=== PATIENT | female | born 1985 | race Caucasian/White ===

== ENCOUNTER 2016-09-04 04:48 | Emergency (ER) | payer SELFPAY ==
[~2016-09-04] VITALS: Ht 162.6 cm; Wt 56.0 kg
[~2016-09-04 04:48] MED LIST: RISP2TAB3 PO; TAP5 PO
[2016-09-04] MEDS ORDERED: HALOPERIDOL 5 MG INJ IM STA (04:51)
[2016-09-04] MEDS ORDERED: LORAZEPAM 2 MG INJ IM ONE (05:00)
[2016-09-04 05:04] VITALS: Ht 162.6 cm; Wt 56.0 kg
[2016-09-04] MEDS ORDERED: DIVA250T60 PO (05:21)
[2016-09-04] MEDS ORDERED: LITH300T5 PO (05:21)
[2016-09-04] MEDS ORDERED: OLAN10VI3 IM (05:21)
--- NOTE | 2016-09-04 05:23 | ERA ---
ER Documentation Chief Complaint Date/Time DATE: 09/04/16 TIME: 05:21 Chief Complaint hyperactive, hyperverbal, unk drug use although denies use, -si/hi HPI This is a 31-year-old female brought in by ambulance for evaluation of abnormal behavior, and agitation. This patient is unable to give a detailed history secondary to her clinical condition. There is possible drug use. The patient is denying any homicidal or suicidal ideation at this time. ROS All systems reviewed and are negative except as per history of present illness. Medications Home Meds Reported Medications Olanzapine (Zyprexa) 10 Mg Soln, 10 MG IM ONCE, #1 VIAL 09/04/16 Divalproex Sodium* (Depakote*) 250 Mg Tablet.dr, 250 MG PO TID, TAB 09/04/16 [place] Carbonate* ([place] Carbonate*) 300 Mg Tablet, 300 MG PO TID, TAB 09/04/16 Methimazole* (Methimazole*) 5 Mg Tablet, 5 MG PO BID, TAB 06/26/16 Risperidone* (Risperidone*) 2 Mg Tablet, 2 MG PO DAILY, TAB 06/26/16 Allergies Allergies: Coded Allergies: No Known Allergy (Unverified , 06/26/16) PMhx/Soc History of Surgery: No Anesthesia Reaction: No Hx Neurological Disorder: No Hx Respiratory Disorders: No Hx Cardiac Disorders: No Hx Psychiatric Problems: Yes (drug abuse, ETOH abuse, schitzophrenia) Hx Miscellaneous Medical Probl: No Hx Alcohol Use: Yes (unable to determine type, last used today) Hx Substance Use: Yes (cocaine last used today) Hx Tobacco Use: Yes (unknown) Smoking Status: Current every day smoker Physical Exam Vitals Vital Signs Date Time Temp Pulse Resp B/P Pulse Ox O2 Delivery O2 Flow Rate FiO2 09/04/16 05:04 98.5 99 20 141/95 100 Physical Exam Const: Disheveled appearance, agitated, he Head: [Atraumatic] Eyes: [Normal Conjunctiva] ENT: [Normal External Ears, Nose and Mouth.] Neck: [Full range of motion. No meningismus.] Resp: [Clear to auscultation bilaterally] Cardio: [Regular rate and rhythm, no murmurs] Abd: [Soft, non tender, non distended. Normal bowel sounds] Skin: [No petechiae or rashes] Back: [No midline or flank tenderness] Ext: [No cyanosis, or edema] Neur: [Awake and alert] Psych: Patient is agitated, and yelling Results 24 hrs Current Medications Medications (Trade) Dose Ordered Sig/Yeny Route PRN Reason Start Time Stop Time Status Last Admin Dose Admin Haloperidol (Haldol) 5 mg ONCE STAT IM 09/04/16 04:51 09/04/16 04:53 DC 09/04/16 05:10 Lorazepam (Ativan) 2 mg ONCE ONCE IM 09/04/16 05:00 09/04/16 05:01 DC 09/04/16 05:10 Procedures/MDM This 31-year-old female presents to the emergency room for agitation. The patient was given Haldol, Ativan, and Benadryl due to the fact that she was screaming. I could not obtain a detailed history from her secondary to her clinical condition. This patient will be evaluated by psychiatric evaluation team will be placed on a hold if deemed necessary. Patient presents with symptomatology consistent with the decompensation of previously diagnosed psychiatric disease. Based on history, physical exam and appropriate lab tests , I appreciate no evidence of significant life-threatening injury or illness that includes a psychiatric hospitalization. Patient is thus "medically clear" for psychiatric admission. In regards to the psychiatric complaints, this patient has clear evidence of high risk psychiatric symptoms with significant risk for decompensation, thus requiring admission to the hospital for stabilization. Departure Diagnosis: Primary Impression: Acute psychosis Condition: Stable PATRICIA ROMO DO Sep 04, 2016 05:22
[2016-09-04 05:58] LABS: BASOPHIL # 0.1 10^3/ul (0.0-0.1); BASOPHILS % 0.4 % (0.0-2.0); EOSINOPHILS # 0.1 10^3/ul (0.0-0.5); EOSINOPHILS % 0.8 % (0.0-7.0); HEMATOCRIT 41.2 % (37.0-47.0); HEMOGLOBIN 14.1 g/dl (12.0-16.0); LYMPHOCYTES % 12.8 % (15.0-51.0); MEAN CORPUSCULAR HEMOGLOBIN 28.6 pg (29.0-33.0); MEAN CORPUSCULAR HGB CONC 34.3 g/dl (32.0-37.0); MEAN CORPUSCULAR VOLUME 83.4 fl (82.0-101.0); MEAN PLATELET VOLUME 8.6 fl (7.4-10.4); MONOCYTE # 0.6 10^3/ul (0.3-0.9); NEUTROPHIL # 12.5 10^3/ul (1.6-7.5); PLATELET COUNT 354 10^3/UL (140-440); RED BLOOD COUNT 4.94 10^6/ul (4.20-5.40); RED CELL DISTRIBUTION WIDTH 16.9 % (11.5-14.5); UNCORRECTED WBC 15.3 10^3/ul (4.8-10.8); WHITE BLOOD COUNT 15.3 10^3/ul (4.8-10.8)
[2016-09-04 06:03] LABS: ALBUMIN 4.7 g/dl (3.3-4.9); CHLORIDE 104 mmol/L (97-110)
[2016-09-04 06:04] LABS: POTASSIUM 4.3 mmol/L (3.5-5.1); SODIUM 142 mmol/L (135-144)
[2016-09-04 06:06] LABS: ANION GAP 16 (8-16); ASPARTATE AMINO TRANSFERASE 32 IU/L (15-46); BILIRUBIN,INDIRECT 0.6 mg/dl (0-1.1); BILIRUBIN,TOTAL 0.6 mg/dl (0.2-1.3); CARBON DIOXIDE 26 mmol/L (21-31); CREATININE 0.73 mg/dl (0.44-1.00)
[2016-09-04 06:07] LABS: ALANINE AMINOTRANSFERASE 28 IU/L (13-69); ALBUMIN/GLOBULIN RATIO 1.14; ALKALINE PHOSPHATASE 82 IU/L (42-121); BLOOD UREA NITROGEN 17 mg/dl (7-20); CONDITION 1; GLUCOSE 82 mg/dl (70-220); LH ANALYZER COMMENTS 1; TOTAL PROTEIN 8.8 g/dl (6.1-8.1)
[2016-09-04 06:09] LABS: ACETAMINOPHEN < 10.0 ug/ml (10.0-30.0); ETHANOL < 10.0 mg/dl; SALICYLATE < 1.0 mg/dl (5.0-30.0)
[2016-09-04 07:45] LABS: ADD UMIC NO; URINE BILIRUBIN (Dip) NEGATIVE (NEGATIVE); URINE BLOOD (Dip) NEGATIVE (NEGATIVE); URINE COLOR LT. YELLOW (YELLOW); URINE GLUCOSE (Dip) NEGATIVE (NEGATIVE); URINE KETONES (Dip) NEGATIVE (NEGATIVE); URINE LEUKOCYTE ESTERASE (Dip) NEGATIVE (NEGATIVE); URINE NITRITE (Dip) NEGATIVE (NEGATIVE); URINE TOTAL PROTEIN (Dip) NEGATIVE (NEGATIVE); URINE UROBILINOGEN (Dip) 0.2 E.U./dL (0.1-1.0)
[2016-09-04 08:07] LABS: BARBITURATES NEGATIVE (NEGATIVE); BENZODIAZEPINES NEGATIVE (NEGATIVE); CANNABINOIDS NEGATIVE (NEGATIVE); COCAINE NEGATIVE (NEGATIVE); OPIATES NEGATIVE (NEGATIVE)
--- NOTE | 2016-09-04 14:40 | PSY ---
Date/Time of Note Date/Time of Note DATE: 09/04/16 TIME: 14:25 Psychiatric Subjective Eval Consent Pt consented to telemedicine: Yes Subjective Evaluation Patient location: emergency Chief Complaint: hyperactive, hyperverbal, unk drug use although denies use, - si/hi History of present illness d/w Dr Burton earlier in AM (pt was sedated at the time). Pt is 31 yo female BIB police due to agitation, screaming. Pt was chemically restrained with Haldol and Ativan. She is awake and alert now. She is pleasant, smiling. Pt adamantly denies any si or hi, she denies ah or vh. She admits to feeling "sometimes" paranoid. She says she is here because she "argues a lot". Pt says , she can go to her mother's house. She denies depressed mood or anxiety. Past psychiatric history pt says she had 14 inpt psych for "arguing" - she has a long hx meth use disorder and non adherence to meds. Denies hx SI . 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 Psychiatric Objective Eval Physical Examination: Appetite: Adequate Energy: Adequate Interest: Adequate Mental Status Examination: Appearance: Disheveled Eye Contact: Good Psychomotor Activity: Normal Behavior: Cooperative Speech: Pressured AFFECT: Appropriate Mood: Elevated Though Process: Linear Thought Content: Normal Suicidal: No Homicidal: No On 72 hour hold: No Orientation: x4 Cognition: Alert Insight: Impared Judgement: Impared Laboratory Results Laboratory Tests Test 09/04/16 05:10 09/04/16 06:55 Acetaminophen Level < 10.0ug/ml Alanine Aminotransferase (ALT/SGPT) 28IU/L Albumin 4.7g/dl Albumin/Globulin Ratio 1.14 Alkaline Phosphatase 82IU/L Anion Gap 16 Aspartate Amino Transf (AST/SGOT) 32IU/L Basophils # 0.110^3/ul Basophils % 0.4% Blood Morphology Comment Blood Urea Nitrogen 17mg/dl Calcium Level 10.0mg/dl Carbon Dioxide Level 26mmol/L Chloride Level 104mmol/L Creatinine 0.73mg/dl Direct Bilirubin 0.00mg/dl Eosinophils # 0.110^3/ul Eosinophils % 0.8% Ethyl Alcohol Level < 10.0mg/dl Globulin 4.10g/dl Glucose Level 82mg/dl Hematocrit 41.2% Hemoglobin 14.1g/dl Indirect Bilirubin 0.6mg/dl Lymphocytes # 2.010^3/ul Lymphocytes % 12.8% Mean Corpuscular Hemoglobin 28.6pg Mean Corpuscular Hemoglobin Concent 34.3g/dl Mean Corpuscular Volume 83.4fl Mean Platelet Volume 8.6fl Monocytes # 0.610^3/ul Monocytes % 4.0% Neutrophils # 12.510^3/ul Neutrophils % 82.0% Nucleated Red Blood Cells # 0.010^3/ul Nucleated Red Blood Cells % 0.0/100WBC Platelet Count 76518^3/UL Potassium Level 4.3mmol/L Red Blood Count 4.9410^6/ul Red Cell Distribution Width 16.9% Salicylates Level < 1.0mg/dl Sodium Level 142mmol/L Total Bilirubin 0.6mg/dl Total Protein 8.8g/dl White Blood Count 15.310^3/ul Urine Amphetamines Screen POSITIVE Urine Barbiturates NEGATIVE Urine Benzodiazepines Screen NEGATIVE Urine Bilirubin NEGATIVE Urine Cannabinoids NEGATIVE Urine Clarity CLEAR Urine Cocaine Screen NEGATIVE Urine Color LT. YELLOW Urine Glucose NEGATIVE% Urine Hemoglobin NEGATIVE Urine Ketones NEGATIVE Urine Leukocyte Esterase NEGATIVE Urine Nitrite NEGATIVE Urine Opiates Screen NEGATIVE Urine Test NEGATIVE Urine Specific [place] 1.025 Urine Total Protein NEGATIVE Urine Urobilinogen 0.2 E.U./dL Urine pH 6.0 Assessment and Plan Assessment/Diagnosis Higbee I: AMPHETAMINE INDUCED PSYCHOSIS Higbee II: DEFERED Higbee III: PER RECORD Higbee IV: SEVERE Higbee V: GAF 40 Recommendation/Plan Medication Management SEROQUEL 200 MG PO QHS 30 DAYS SUPPLY Follow-up/Disposition NO DTS, DTO,GD. PLEASE REFER TO [facility]. [id number] Recommendation: Place LEO Ryan MD Sep 04, 2016 14:35
[2016-09-04] MEDS ORDERED: QUET200T PO (17:02)
--- NOTE | 2016-09-04 17:08 | EN ---
Date/Time of Note Date/Time of Note DATE: 09/04/16 TIME: 17:04 ER Progress Note This patient was evaluated by tele-psychiatry during my shift. Diagnosis with methamphetamine abuse psychosis. The patient no longer states that she has suicidal or homicidal ideations. She is feeling much better. I spoke with her at the bedside regarding methamphetamine use and its dangers. I am also providing her with written instructions. If her primary care follow-up in the next few days as well as psychiatric resources that she can call. Vital signs are stable. Psychiatry advised discharging with 200 mg Seroquel nightly. I will give her 15 tablets of this. Discharge diagnosis: Methamphetamine induced psychosis SORIN CORCORAN DO Sep 04, 2016 17:08
[2016-09-04 17:29] VITALS: BP 114/76; PULSE 79; RESP 16; TEMP 98.1
== END 2016-09-04 17:33 | disposition home or self-care (01) ==
LOC: E/R 04:48
DX: F29 Unspecified psychosis not due to a substance or known physiological condition (principal); F17.210 Nicotine dependence, cigarettes, uncomplicated
CPT/HCPCS: 80053; 80306; 80307; 81003; 84703; 85025; J1630; J2060; 36415; 96372

== ENCOUNTER 2016-11-05 13:23 | Emergency (ER) | payer SELFPAY ==
[~2016-11-05] VITALS: Ht 170.2 cm; Wt 60.0 kg
[~2016-11-05 13:23] MED LIST changes: +DIVA250T60 PO; +LITH300T5 PO; +OLAN10VI3 IM; +QUET200T PO
[2016-11-05] MEDS ORDERED: SOD CHLORIDE 0.9% 1,000 ML IV STA (13:28)
[2016-11-05 13:30] VITALS: Ht 170.2 cm; Wt 60.0 kg
[2016-11-05 13:45] LABS: ADD SCAN DIFF NO
[2016-11-05 13:48] LABS: ABNORMAL IP MESSAGE 1; HEMATOCRIT 48.9 % (37.0-47.0); HEMOGLOBIN 16.2 g/dl (12.0-16.0); MEAN CORPUSCULAR HEMOGLOBIN 28.3 pg (29.0-33.0); MEAN CORPUSCULAR HGB CONC 33.1 g/dl (32.0-37.0); MEAN CORPUSCULAR VOLUME 85.5 fl (82.0-101.0); MEAN PLATELET VOLUME 10.4 fl (7.4-10.4); PLATELET COUNT 456 10^3/UL (140-415); RED BLOOD COUNT 5.72 10^6/ul (4.20-5.40); RED CELL DISTRIBUTION WIDTH 15.8 % (11.5-14.5); WHITE BLOOD COUNT 29.9 10^3/ul (4.8-10.8)
[2016-11-05 13:57] LABS: ALBUMIN 5.1 g/dl (3.3-4.9); CHLORIDE 101 mmol/L (97-110)
[2016-11-05 13:58] LABS: POTASSIUM 3.6 mmol/L (3.5-5.1); SODIUM 141 mmol/L (135-144)
[2016-11-05 14:00] LABS: ALANINE AMINOTRANSFERASE 23 IU/L (13-69); ALBUMIN/GLOBULIN RATIO 1.08; ALKALINE PHOSPHATASE 88 IU/L (42-121); ANION GAP 26 (8-16); ASPARTATE AMINO TRANSFERASE 46 IU/L (15-46); BILIRUBIN,INDIRECT 0.7 mg/dl (0-1.1); BILIRUBIN,TOTAL 0.7 mg/dl (0.2-1.3); BLOOD UREA NITROGEN 16 mg/dl (7-20); CALCIUM 9.9 mg/dl (8.4-10.2); CARBON DIOXIDE 18 mmol/L (21-31); CREATININE 1.62 mg/dl (0.44-1.00); GLUCOSE 172 mg/dl (70-220); TOTAL PROTEIN 9.8 g/dl (6.1-8.1)
[2016-11-05 14:14] LABS: ACETAMINOPHEN < 10.0 ug/ml (10.0-30.0); ETHANOL < 10.0 mg/dl; SALICYLATE < 1.0 mg/dl (5.0-30.0)
[2016-11-05] MEDS ORDERED: LORAZEPAM 2 MG INJ ONE (14:18)
[2016-11-05 14:26] LABS: EOSINOPHILS # 0.3 10^3/ul (0.0-0.5); LYMPHOCYTES # 1.8 10^3/ul (0.8-2.9); MONOCYTE # 1.8 10^3/ul (0.3-0.9); NEUTROPHIL # 24.2 10^3/ul (1.6-7.5)
[2016-11-05] MEDS ORDERED: LORAZEPAM 2 MG INJ IV ONE (14:30)
--- NOTE | 2016-11-05 14:58 | ERD ---
ER Documentation Chief Complaint Date/Time DATE: 11/05/16 TIME: 14:55 Chief Complaint TOOK UNKNOWN PILLS FOR RECREATIONAL USE. IN ED FOR EVAL. HPI 31-year-old female presents to the emergency department by ambulance after apparent ingestion. Parent apparently tried take drugs of abuse. She was found with an altered mental status. Tax Collection Coordinator report was that the patient was hypotensive in the field I have reviewed the vocational trainer pre-hospital care. Pre-hospital vital signs were reviewed. Pre-hospital diagnostic tests were reviewed. Upon arrival, patient is asymptomatic. She denies suicidal or homicidal thoughts. ROS All systems reviewed and are negative except as per history of present illness. Medications Home Meds Active Scripts Quetiapine Fumarate* (Seroquel*) 200 Mg Tablet, 200 MG PO HS, #15 TAB Prov:SORIN CORCORAN DO 09/04/16 Reported Medications Olanzapine (Zyprexa) 10 Mg Soln, 10 MG IM ONCE, #1 VIAL 09/04/16 Divalproex Sodium* (Depakote*) 250 Mg Tablet.dr, 250 MG PO TID, TAB 09/04/16 [place] Carbonate* ([place] Carbonate*) 300 Mg Tablet, 300 MG PO TID, TAB 09/04/16 Methimazole* (Methimazole*) 5 Mg Tablet, 5 MG PO BID, TAB 06/26/16 Risperidone* (Risperidone*) 2 Mg Tablet, 2 MG PO DAILY, TAB 06/26/16 Allergies Allergies: Coded Allergies: No Known Allergy (Unverified , 06/26/16) PMhx/Soc History of Surgery: No Anesthesia Reaction: No Hx Neurological Disorder: No Hx Respiratory Disorders: No Hx Cardiac Disorders: No Hx Psychiatric Problems: Yes (drug abuse, ETOH abuse, schitzophrenia) Hx Miscellaneous Medical Probl: No Hx Alcohol Use: Yes (unable to determine type, last used today) Hx Substance Use: Yes (cocaine last used today) Hx Tobacco Use: Yes (unknown) Smoking Status: Never smoker FmHx Noncontributory for chief complaint Physical Exam Vitals Vital Signs Date Time Temp Pulse Resp B/P Pulse Ox O2 Delivery O2 Flow Rate FiO2 11/05/16 13:30 82 16 124/81 94 Physical Exam GENERAL: Patient is well-developed well-nourished but disheveled. HEENT: Pupils equal, round, and reactive to light. EOMI. There is no scleral icterus. Airway is clear NECK: C-spine is soft and supple, there is no meningismus. There is no cervical lymphadenopathy. LUNGS: Clear to auscultation bilaterally. There are no rales, wheezes or rhonchi. HEART: Regular rate and rhythm, no murmurs, clicks, rubs or gallops. ABDOMEN: Soft, non-tender, non-distended. There are bowel sounds in all four quadrants. No rebound or guarding. EXTREMITIES: There is no peripheral cyanosis or edema. No focal swelling or erythema. NEURO: Patient is somnolent but awake and arousable. She is protecting her airway. She has a nonfocal motor and sensory examination. SKIN: There is no apparent rash or petechiae. HEME/LYMPHATIC: There is no evidence of excessive bruising or lymphedema. PSYCHIATRIC: The patient does not appear anxious or depressed. Result Diagram: 11/05/16 1335 11/05/16 1335 Results 24 hrs Laboratory Tests Test 11/05/16 13:35 White Blood Count 29.910^3/ul Red Blood Count 5.7210^6/ul Hemoglobin 16.2g/dl Hematocrit 48.9% Mean Corpuscular Volume 85.5fl Mean Corpuscular Hemoglobin 28.3pg Mean Corpuscular Hemoglobin Concent 33.1g/dl Red Cell Distribution Width 15.8% Platelet Count 21756^3/UL Mean Platelet Volume 10.4fl Neutrophils % 81.0% Band Neutrophils % 6.0% Lymphocytes % 6.0% Monocytes % 6.0% Eosinophils % 1.0% Neutrophils # 24.210^3/ul Lymphocytes # 1.810^3/ul Monocytes # 1.810^3/ul Eosinophils # 0.310^3/ul Sodium Level 141mmol/L Potassium Level 3.6mmol/L Chloride Level 101mmol/L Carbon Dioxide Level 18mmol/L Anion Gap 26 Blood Urea Nitrogen 16mg/dl Creatinine 1.62mg/dl Glucose Level 172mg/dl Calcium Level 9.9mg/dl Total Bilirubin 0.7mg/dl Direct Bilirubin 0.00mg/dl Indirect Bilirubin 0.7mg/dl Aspartate Amino Transf (AST/SGOT) 46IU/L Alanine Aminotransferase (ALT/SGPT) 23IU/L Alkaline Phosphatase 88IU/L Total Protein 9.8g/dl Albumin 5.1g/dl Globulin 4.70g/dl Albumin/Globulin Ratio 1.08 Serum HCG, Qualitative NEGATIVE Salicylates Level < 1.0mg/dl Acetaminophen Level < 10.0ug/ml Ethyl Alcohol Level < 10.0mg/dl Current Medications Medications (Trade) Dose Ordered Sig/Yeny Route PRN Reason Start Time Stop Time Status Last Admin Dose Admin Sodium Chloride (NS) 1,000 ml @ 1,000 mls/hr Q1H STAT IV 11/05/16 13:28 11/05/16 14:27 DC 11/05/16 14:21 Lorazepam (Ativan) 2 mg ONCE ONCE IV 11/05/16 14:30 11/05/16 14:31 DC 11/05/16 14:21 Lorazepam (Ativan) 2 mg STK-MED ONCE .ROUTE 11/05/16 14:18 11/05/16 14:19 DC Procedures/MDM Patient was taken to a room, seen and evaluated. Comfort measures were initiated. Diagnostic tests were ordered and reviewed. 3 LEAD RHYTHM STRIP: Normal sinus rhythm without ectopy RADIOLOGY: reviewed with the radiologist REEVALUATION: Patient remains somewhat agitated and required ongoing sedation. MEDICAL DECISION MAKIN-year-old female presents after an overdose. Patient will require prolonged observation at this time as she is not ready for discharge. Am unable to assess her from a psychiatric and full social standpoint, but she does not appear to be unstable in any way. BELTRAN MURRY Nov 05, 2016 14:58
--- NOTE | 2016-11-05 15:05 | RADRPT ---
PROCEDURE: XR Chest. CLINICAL INDICATION: chest pain TECHNIQUE: Single frontal view of the chest was obtained COMPARISON: None FINDINGS: The heart and mediastinum are within normal limits. The left lung base was not completely included. There is moderate gaseous distension underneath the left diaphragm. The lungs are clear. There is no pleural effusion or pneumothorax. RPTAT: AA IMPRESSION: No acute disease. Slightly limited study. The left lung base was not completely included. Moderate gaseous distension underneath the left diaphragm. .Maury Barrios MD, Date Time Electronically viewed and signed by .Maury Barrios MD, on 11/05/2016 15:05 .S/
[2016-11-05 18:26] LABS: ADD UMIC YES; URINE BILIRUBIN (Dip) 2+ (NEGATIVE); URINE BLOOD (Dip) 3+ (NEGATIVE); URINE COLOR YELLOW (YELLOW); URINE GLUCOSE (Dip) NEGATIVE (NEGATIVE); URINE KETONES (Dip) TRACE (NEGATIVE); URINE LEUKOCYTE ESTERASE (Dip) NEGATIVE (NEGATIVE); URINE NITRITE (Dip) NEGATIVE (NEGATIVE); URINE TOTAL PROTEIN (Dip) 4+ (NEGATIVE); URINE UROBILINOGEN (Dip) 0.2 E.U./dL (0.1-1.0)
[2016-11-05 18:54] LABS: ICTOTEST NEGATIVE (NEGATIVE); SQUAMOUS EPITHELIAL CELL,UR MODERATE
[2016-11-05 18:55] LABS: BACTERIA,URINE FEW
[2016-11-05 19:09] LABS: CANNABINOIDS Negative (NEGATIVE)
[2016-11-05 19:31] LABS: BARBITURATES Negative (NEGATIVE); BENZODIAZEPINES Negative (NEGATIVE); COCAINE Negative (NEGATIVE); OPIATES Negative (NEGATIVE)
[2016-11-05 20:48] VITALS: TEMP 98.6
--- NOTE | 2016-11-05 21:54 | EN ---
Date/Time of Note Date/Time of Note DATE: 11/05/16 TIME: 21:53 ER Progress Note Observation Note: Time: 8 hours Family Hx: No Hypertension Evaluation: Multiple exams showed improving symptoms and no evidence of encephalopathy or acute emergent medical condition. Patient is mentating normally and ambulating with a steady gait. Her mother and sister are here to pick her up. She was counseled on not using illicit drugs and the potential dangers of these drugs. MOIRA JAIN MD Nov 05, 2016 21:54
[2016-11-05 22:03] VITALS: BP 121/93; PULSE 114; RESP 16
== END 2016-11-05 22:03 | disposition home or self-care (01) ==
LOC: E/R 13:23
DX: T50.901A Poisoning by unspecified drugs, medicaments and biological substances, accidental (unintentional), initial encounter (principal); R40.2142 Coma scale, eyes open, spontaneous, at arrival to emergency department; R40.2362 Coma scale, best motor response, obeys commands, at arrival to emergency department; R40.2252 Coma scale, best verbal response, oriented, at arrival to emergency department
CPT/HCPCS: 71010; 80053; 80306; 80307; 81001; 81003; 84703; 85025; J2060; J7030; 36415; 96374

== ENCOUNTER 2017-01-27 15:28 | Inpatient (IN) | payer MEDICAID ==
[~2017-01-27] VITALS: Ht 170.2 cm; Wt 57.5 kg
[2017-01-27] MEDS: D5W-0.45 NACL + KCL 20 MEQ 1,000 ML IV SCH (01:00)
[~2017-01-27 15:28] MED LIST changes: +METH-493 PO; -TAP5 PO
[2017-01-27] MEDS ORDERED: ONDANSETRON 4 MG INJ IV STA (15:45)
[2017-01-27] MEDS ORDERED: SOD CHLORIDE 0.9% 1,000 ML IV ONE ×3 (16:00→22:00)
[2017-01-27] MEDS ORDERED: LORAZEPAM 2 MG INJ IV ONE (16:00)
[2017-01-27 16:35] LABS: ADD SCAN DIFF NO
[2017-01-27 16:38] LABS: BASOPHIL # 0.1 10^3/ul (0.0-0.1); BASOPHILS % 0.5 % (0.0-2.0); EOSINOPHILS # 0.1 10^3/ul (0.0-0.5); EOSINOPHILS % 0.5 % (0.0-7.0); HEMATOCRIT 43.2 % (37.0-47.0); HEMOGLOBIN 14.3 g/dl (12.0-16.0); LYMPHOCYTES # 3.3 10^3/ul (0.8-2.9); LYMPHOCYTES % 19.6 % (15.0-51.0); MEAN CORPUSCULAR HEMOGLOBIN 26.5 pg (29.0-33.0); MEAN CORPUSCULAR HGB CONC 33.1 g/dl (32.0-37.0); MEAN CORPUSCULAR VOLUME 80.1 fl (82.0-101.0); MONOCYTE # 1.2 10^3/ul (0.3-0.9); MONOCYTES % 6.9 % (0.0-11.0); NEUTROPHIL # 12.1 10^3/ul (1.6-7.5); NEUTROPHILS % 71.8 % (39.0-77.0); PLATELET COUNT 378 10^3/UL (140-415); RED BLOOD COUNT 5.39 10^6/ul (4.20-5.40); RED CELL DISTRIBUTION WIDTH 17.7 % (11.5-14.5); WHITE BLOOD COUNT 16.9 10^3/ul (4.8-10.8)
[2017-01-27 17:02] LABS: ALANINE AMINOTRANSFERASE 26 IU/L (13-69); ALBUMIN 5.5 g/dl (3.3-4.9); ALBUMIN/GLOBULIN RATIO 1.61; ALKALINE PHOSPHATASE 71 IU/L (42-121); ANION GAP 23 (8-16); ASPARTATE AMINO TRANSFERASE 28 IU/L (15-46); BILIRUBIN,INDIRECT 0.3 mg/dl (0-1.1); BILIRUBIN,TOTAL 0.3 mg/dl (0.2-1.3); BLOOD UREA NITROGEN 17 mg/dl (7-20); CALCIUM 10.3 mg/dl (8.4-10.2); CARBON DIOXIDE 16 mmol/L (21-31); CHLORIDE 108 mmol/L (97-110); CREATININE 1.57 mg/dl (0.44-1.00); GLUCOSE 80 mg/dl (70-220); POTASSIUM 4.5 mmol/L (3.5-5.1); SODIUM 142 mmol/L (135-144); TOTAL PROTEIN 8.9 g/dl (6.1-8.1)
[2017-01-27 17:08] LABS: ACETAMINOPHEN < 10.0 ug/ml (10.0-30.0)
[2017-01-27 17:09] LABS: SALICYLATE < 1.0 mg/dl (5.0-30.0)
[2017-01-27 17:13] LABS: T3 UPTAKE 36.4 % (23.5-40.5)
[2017-01-27 17:27] LABS: THYROID STIMULATING HORMONE 0.061 MIU/L (0.465-4.680)
[2017-01-27 20:45] LABS: BARBITURATES Negative (NEGATIVE); BENZODIAZEPINES Negative (NEGATIVE); CANNABINOIDS Negative (NEGATIVE); COCAINE Negative (NEGATIVE); OPIATES Negative (NEGATIVE)
[2017-01-27 21:18] LABS: ADD UMIC NO; UR ASCORBIC ACID NEGATIVE (NEGATIVE); UR BILIRUBIN (Dip) NEGATIVE (NEGATIVE); UR BLOOD (Dip) NEGATIVE (NEGATIVE); UR CLARITY CLEAR (CLEAR); UR COLOR STRAW (YELLOW); UR GLUCOSE (Dip) NEGATIVE (NEGATIVE); UR KETONES (Dip) NEGATIVE (NEGATIVE); UR LEUKOCYTE ESTERASE (Dip) NEGATIVE Leu/ul (NEGATIVE); UR NITRITE (Dip) NEGATIVE (NEGATIVE); UR SPECIFIC GRAVITY (Dip) 1.008 (1.003-1.030); UR TOTAL PROTEIN (Dip) NEGATIVE (NEGATIVE); UR UROBILINOGEN (Dip) NEGATIVE (NEGATIVE)
--- NOTE | 2017-01-27 22:18 | ERA ---
ER Documentation Chief Complaint Date/Time DATE: 01/27/17 TIME: 22:13 Chief Complaint HPI 31-year-old female is brought in by ambulance for being found with very erratic behavior and not making sense. She admits to using meth very readily. She also has a bottle of levothyroxine 100 mg tablets in her pocket that she says she took several of. She denies any pain. She is currently restrained by paramedics for erratic behavior that was bordering on self harming. States that she also drank alcohol she will not say what type of alcohol she drinks. Denies any recent fever or chills. ROS All systems reviewed and are negative except as per history of present illness the patient is intoxicated may be unreliable.. Medications Home Meds Active Scripts Quetiapine Fumarate* (Seroquel*) 200 Mg Tablet, 200 MG PO HS, #15 TAB Prov:SORIN CORCORAN DO 09/04/16 Reported Medications Olanzapine (Zyprexa) 10 Mg Soln, 10 MG IM ONCE, #1 VIAL 09/04/16 Divalproex Sodium* (Depakote*) 250 Mg Tablet.dr, 250 MG PO TID, TAB 09/04/16 [place] Carbonate* ([place] Carbonate*) 300 Mg Tablet, 300 MG PO TID, TAB 09/04/16 Methimazole* (Methimazole*) 5 Mg Tablet, 5 MG PO BID, TAB 06/26/16 Risperidone* (Risperidone*) 2 Mg Tablet, 2 MG PO DAILY, TAB 06/26/16 Allergies Allergies: Coded Allergies: No Known Allergy (Unverified , 06/26/16) PMhx/Soc History of Surgery: No Anesthesia Reaction: No Hx Neurological Disorder: No Hx Respiratory Disorders: No Hx Cardiac Disorders: No Hx Psychiatric Problems: Yes (drug abuse, ETOH abuse, schitzophrenia) Hx Miscellaneous Medical Probl: Yes (pt has scar to right wrist ) Hx Alcohol Use: Yes Hx Substance Use: Yes (meth) Hx Tobacco Use: Yes Smoking Status: Current every day smoker Physical Exam Vitals Vital Signs Date Time Temp Pulse Resp B/P Pulse Ox O2 Delivery O2 Flow Rate FiO2 01/27/17 21:00 102 20 99/58 98 Room Air 01/27/17 18:45 110 20 128/59 99 Room Air 01/27/17 15:40 97.8 126 18 134/68 97 Physical Exam Const: [] Moderate distress, thrashing about, talkative Head: Atraumatic Eyes: Normal Conjunctiva, EOMI, JANETH ENT: Normal External Ears, Nose and Mouth. Neck: Full range of motion..~ No meningismus. Resp: Clear to auscultation bilaterally Cardio: Regular tachycardia, no murmurs Abd: Soft, non tender, non distended. Normal bowel sounds Skin: No petechiae or rashes, mild diaphoresis Back: No midline or flank tenderness Ext: No cyanosis, or edema Neur: Awake and alert and oriented 3, no focal deficits, moving all 4 extremities Psych: Very euphoric and agitated Result Diagram: 01/27/17 1615 01/27/17 1615 Results 24 hrs Laboratory Tests Test 01/27/17 16:15 01/27/17 19:20 White Blood Count 16.910^3/ul Red Blood Count 5.3910^6/ul Hemoglobin 14.3g/dl Hematocrit 43.2% Mean Corpuscular Volume 80.1fl Mean Corpuscular Hemoglobin 26.5pg Mean Corpuscular Hemoglobin Concent 33.1g/dl Red Cell Distribution Width 17.7% Platelet Count 51725^3/UL Mean Platelet Volume 11.0fl Neutrophils % 71.8% Lymphocytes % 19.6% Monocytes % 6.9% Eosinophils % 0.5% Basophils % 0.5% Nucleated Red Blood Cells % 0.0/100WBC Neutrophils # 12.110^3/ul Lymphocytes # 3.310^3/ul Monocytes # 1.210^3/ul Eosinophils # 0.110^3/ul Basophils # 0.110^3/ul Nucleated Red Blood Cells # 0.010^3/ul Sodium Level 142mmol/L Potassium Level 4.5mmol/L Chloride Level 108mmol/L Carbon Dioxide Level 16mmol/L Anion Gap 23 Blood Urea Nitrogen 17mg/dl Creatinine 1.57mg/dl Glucose Level 80mg/dl Calcium Level 10.3mg/dl Total Bilirubin 0.3mg/dl Direct Bilirubin 0.00mg/dl Indirect Bilirubin 0.3mg/dl Aspartate Amino Transf (AST/SGOT) 28IU/L Alanine Aminotransferase (ALT/SGPT) 26IU/L Alkaline Phosphatase 71IU/L Total Protein 8.9g/dl Albumin 5.5g/dl Globulin 3.40g/dl Albumin/Globulin Ratio 1.61 Thyroid Stimulating Hormone (TSH) 0.061MIU/L Free Thyroxine Index 6.19ug/ml Thyroxine (T4) 17.0ug/dl Triiodothyronine (T3) Uptake 36.4% Salicylates Level < 1.0mg/dl Acetaminophen Level < 10.0ug/ml Ethyl Alcohol Level 427.0mg/dl Urine Color STRAW Urine Clarity CLEAR Urine pH 5.0 Urine Specific [place] 1.008 Urine Ketones NEGATIVEmg/dL Urine Nitrite NEGATIVEmg/dL Urine Bilirubin NEGATIVEmg/dL Urine Urobilinogen NEGATIVEmg/dL Urine Leukocyte Esterase NEGATIVELeu/ul Urine Hemoglobin NEGATIVEmg/dL Urine Glucose NEGATIVEmg/dL Urine Total Protein NEGATIVEmg/dl Urine Opiates Screen Negative Urine Barbiturates Negative Urine Amphetamines Screen Positive Urine Benzodiazepines Screen Negative Urine Cocaine Screen Negative Urine Cannabinoids Negative Current Medications Medications (Trade) Dose Ordered Sig/Yeny Route PRN Reason Start Time Stop Time Status Last Admin Dose Admin Sodium Chloride (NS) 1,000 ml @ 1,000 mls/hr Q1H ONCE IV 01/27/17 16:00 01/27/17 16:59 DC 01/27/17 16:21 Lorazepam (Ativan) 1 mg ONCE ONCE IV 01/27/17 16:00 01/27/17 16:01 DC 01/27/17 16:21 Ondansetron HCl 4 mg 4 mg ONCE STAT IV 01/27/17 15:45 01/27/17 15:56 DC 01/27/17 16:21 Sodium Chloride 1,000 ml @ 1,000 mls/hr Q1H ONCE IV 01/27/17 18:30 01/27/17 19:29 DC 01/27/17 19:00 Sodium Chloride (NS) 1,000 ml @ 1,000 mls/hr Q1H ONCE IV 01/27/17 22:00 01/27/17 22:59 01/27/17 22:24 Ondansetron HCl (Zofran Inj) 4 mg ER BRIDGE PRN IV NAUSEA AND/OR VOMITING 01/27/17 22:30 01/28/17 22:29 Acetaminophen (Tylenol Tab) 650 mg ER BRIDGE PRN PO MILD PAIN/FEVER 01/27/17 22:30 01/28/17 22:29 Procedures/MDM Synthroid ingestion as well as alcohol intoxication dehydration and acute kidney injury in a 31-year-old female. Her TSH is suppressed and her thyroid levels are well above the upper limit of normal however do not suspect thyroid storm this patient. She does appear to be significantly dehydrated to the point of elevated creatinine and hemoconcentration. Heart rate is improving with fluid administration. No signs of infection currently on the patient does have a white count of 17. There is no urinary tract infection the patient has no cough or fever. Likely elevated secondary to multi-substance use and extreme agitation for prolonged period of time. Patient's mental status is also greatly improving. Spoke with Dr. Vargas who will be admitting the patient to telemetry for further hydration and management. EKG interpretation: Normal sinus rhythm 89, normal axis, no ST or T-wave changes concerning for acute ischemia recreation leader interpretation: Persistent sinus tachycardia improved with fluids. No other arrhythmia Departure Diagnosis: Primary Impression: Poisoning by Synthroid Additional Impressions: Dehydration Renal insufficiency Alcohol intoxication Methamphetamine use Leukocytosis Condition: Serious SORIN CORCORAN DO Jan 27, 2017 22:18
[2017-01-27] MEDS ORDERED: ONDANSETRON 4 MG INJ IV PRN (22:30)
[2017-01-27] MEDS ORDERED: ACETAMINOPHEN 325 MG TAB PO PRN (22:30)
[2017-01-28] MEDS ORDERED: ONDANSETRON 4 MG INJ IV PRN
[2017-01-28] MEDS ORDERED: NACL 0.9% 3 ML SYG IV SCH
[2017-01-28] MEDS ORDERED: DOCUSATE SODIUM 100 MG CAP PO PRN
[2017-01-28] MEDS ORDERED: ACETAMINOPHEN 325 MG TAB PO PRN
--- NOTE | 2017-01-28 00:26 | HP ---
DATE OF ADMISSION: 01/27/2017 TIME: 11 p.m. CHIEF COMPLAINT: Altered mental status. HISTORY OF PRESENT ILLNESS: The patient is a 31-year-old female with history of drug abuse with sev eral visits to the ED for amphetamine abuse. The patient presents via ambulance after being found w ith very erratic behavior, not making sense. She does admit to using meth readily and did admit thi s to the ER doctor. The patient is currently very lethargic and is not providing me any history. P er the ER doctor, the patient had a bottle of Synthroid 100 mg tablets in her pocket, and she stated that she took several of them. She was restrained by paramedics for erratic behavior, was reported ly self-harming. She states that she also drank alcohol. She currently is not providing any histor y to me at this time. PAST MEDICAL HISTORY: Amphetamine abuse and schizophrenia. HOME MEDICATIONS: 1. Seroquel. 2. Zyprexa. 3. Depakote. 4. [place]. 5. Methimazole. 6. Risperidone. FAMILY HISTORY: Unknown. SOCIAL HISTORY: The patient has history of alcohol abuse, meth use, tobacco abuse. REVIEW OF SYSTEMS: A 12-point review of systems cannot be obtained secondary to patient's poor ment ation. PHYSICAL EXAMINATION: VITAL SIGNS: Temperature is 97.8, pulse 96, respiratory rate 20, BP is 100/____, saturation 99% on room air. GENERAL: Currently lethargic. HEENT: Normocephalic, atraumatic. CHEST: Clear to auscultation. CARDIOVASCULAR: Regular rate and rhythm. ABDOMEN: Nondistended, nontender, soft. EXTREMITIES: No clubbing, cyanosis, edema. LABORATORY: White count 16.9, hemoglobin is 14.3, platelets are ____. Chemistry within normal limi ts except for carbon dioxide 16 and anion gap is 23, creatinine is 1.57. Total protein is 8.9, albu min is 5.5. TSH is 0.061, free T4 6.19. UA is negative. Urine tox positive for amphetamines and a lcohol. ASSESSMENT AND PLAN: 1. Acute toxic encephalopathy secondary to substance abuse or alcohol as well as amphetamines and a lso possibly from excess Synthroid. It's unclear why the patient has Synthroid considering the fact that the patient also appears to have hyperthyroidism and is taking methimazole. Nonetheless, will admit to telemetry and monitor. The patient will likely need a psych transfer or at least a telesaint joseph bereaatric evaluation and a social media strategist evaluation. 2. Acute versus chronic kidney injury. The patient's creatinine in August of this year was normal and then was elevated several months later, currently is still elevated. Will treat with IV fluids in case there is an acute element here. 3. History of schizophrenia. Will resume patient's home medications when her mentation improves. 4. History of hyperthyroidism. Will continue methimazole when mentation is improved. 5. History of polysubstance abuse. warehouse assembly worker consultation. 6. Prophylaxis. SCDs. Dictated By: KRIS PAZ/AUNG Conf#: [id number] DID#: [id number]
[2017-01-28 06:31] LABS: ADD SCAN DIFF NO
[2017-01-28 06:39] LABS: BASOPHILS % 0.4 % (0.0-2.0); EOSINOPHILS # 0.1 10^3/ul (0.0-0.5); EOSINOPHILS % 1.2 % (0.0-7.0); HEMATOCRIT 30.6 % (37.0-47.0); HEMOGLOBIN 10.1 g/dl (12.0-16.0); LYMPHOCYTES # 2.5 10^3/ul (0.8-2.9); LYMPHOCYTES % 31.7 % (15.0-51.0); MEAN CORPUSCULAR HEMOGLOBIN 26.7 pg (29.0-33.0); MEAN PLATELET VOLUME 11.4 fl (7.4-10.4); MONOCYTE # 0.7 10^3/ul (0.3-0.9); MONOCYTES % 8.9 % (0.0-11.0); NEUTROPHIL # 4.4 10^3/ul (1.6-7.5); NEUTROPHILS % 57.3 % (39.0-77.0); PLATELET COUNT 228 10^3/UL (140-415); RED BLOOD COUNT 3.78 10^6/ul (4.20-5.40); RED CELL DISTRIBUTION WIDTH 17.8 % (11.5-14.5); WHITE BLOOD COUNT 7.7 10^3/ul (4.8-10.8)
[2017-01-28 07:02] LABS: ALBUMIN 3.7 g/dl (3.3-4.9); ALBUMIN/GLOBULIN RATIO 1.76; BILIRUBIN,INDIRECT 0.3 mg/dl (0-1.1); BILIRUBIN,TOTAL 0.3 mg/dl (0.2-1.3); CALCIUM 8.7 mg/dl (8.4-10.2); CREATININE 0.65 mg/dl (0.44-1.00); MAGNESIUM 1.7 mg/dl (1.7-2.5); PHOSPHORUS 3.1 mg/dl (2.5-4.9); POTASSIUM 4.7 mmol/L (3.5-5.1); TOTAL PROTEIN 5.8 g/dl (6.1-8.1)
[2017-01-28] MEDS: D5W-0.45 NACL + KCL 20 MEQ 1,000 ML IV SCH ×2 (12:05→21:55)
[2017-01-28 13:00] VITALS: TEMP 98.2
[2017-01-28 18:12] VITALS: BP 131/74; PULSE 71; RESP 16; Ht 170.2 cm; Wt 57.5 kg
[2017-01-28 18:19] VITALS: PULSE 77
[2017-01-28 19:20] VITALS: BP 112/79; RESP 16
[2017-01-28 20:40] VITALS: PULSE 49
[2017-01-28] MEDS: clonAZEPAM 0.5 MG TAB PO PRN (21:55)
--- NOTE | 2017-01-28 23:56 | PN ---
Date/Time of Note Date/Time of Note DATE: 01/28/17 TIME: 23:56 Assessment/Plan VTE Prophylaxis VTE Prophylaxis Intervention: SCD's Lines/Catheters IV Catheter Type (from Nrs): Peripheral IV Assessment/Plan Assessment/Plan IMPRESSION 1. Acute Encephalopathy secondary to methamphetamine and alcohol 2. Homicidal Ideation with likely suicide attempt: Per, ER note Police report states that patient was walking around with knives, and when asked why she states that she would hurt her mother and sister. 3. Acute kidney injury: resolved 3. History of schizophrenia. 4. History of hyperthyroidism. 5. History of polysubstance abuse. 6. Metabolic Acidosis: improving PLAN - 1:1 sitter (Per, ER note Police report states that patient was walking around with knives, and when asked why she states that she would hurt her mother and sister). - Utox positive for amphetamine and etoh level is elevated. Will start pt on Banana bag. - will start Seroquel 200mg po qhs. She will have a telepsych eval - Resume thyroid med tomorrow - panel lay up worker on board Subjective 24 Hr Interval Summary Free Text/Dictation appears nervous. denies SI Exam/Review of Systems Vital Signs Vitals Vital Signs Date Time Temp Pulse Resp B/P Pulse Ox O2 Delivery O2 Flow Rate FiO2 01/28/17 20:40 49 01/28/17 19:20 98.3 16 112/79 100 01/28/17 18:12 Room Air Exam Constitutional: alert, oriented, other (looks nervous. extremity tremor noted) Head: atraumatic, normocephalic Respiratory: clear to auscultation, normal air movement Cardiovascular: nl pulses, regular rate and rhythm Gastrointestinal: non-tender, soft Extremities: other (upper ext tremor noted) Results Result Diagram: 01/28/17 0554 01/28/17 0554 Results 24 hrs Laboratory Tests Test 01/28/17 05:54 White Blood Count 7.7 # Red Blood Count 3.78 #L Hemoglobin 10.1 #L Hematocrit 30.6 #L Mean Corpuscular Volume 81.0 L Mean Corpuscular Hemoglobin 26.7 L Mean Corpuscular Hemoglobin Concent 33.0 Red Cell Distribution Width 17.8 H Platelet Count 228 # Mean Platelet Volume 11.4 H Neutrophils % 57.3 Lymphocytes % 31.7 Monocytes % 8.9 Eosinophils % 1.2 Basophils % 0.4 Nucleated Red Blood Cells % 0.0 Neutrophils # 4.4 Lymphocytes # 2.5 Monocytes # 0.7 Eosinophils # 0.1 Basophils # 0.0 Nucleated Red Blood Cells # 0.0 Sodium Level 139 Potassium Level 4.7 Chloride Level 112 H Carbon Dioxide Level 20 L Anion Gap 12 # Blood Urea Nitrogen 14 Creatinine 0.65 Glucose Level 87 Hemoglobin A1c 5.4 Calcium Level 8.7 Phosphorus Level 3.1 Magnesium Level 1.7 Total Bilirubin 0.3 Direct Bilirubin 0.00 Indirect Bilirubin 0.3 Aspartate Amino Transf (AST/SGOT) 22 Alanine Aminotransferase (ALT/SGPT) 25 Alkaline Phosphatase 47 Total Protein 5.8 #L Albumin 3.7 # Globulin 2.10 Albumin/Globulin Ratio 1.76 Medications Medications Current Medications Potassium Chloride/Dextrose/ Sod Cl (D5-1/2ns + KCl 20 Meq) 1,000 ml @ 100 mls/ hr Q10H IV Last administered on 01/28/17 21:55; Admin Dose 100 MLS/HR; Start 01/27/17 at 23:51 Ondansetron HCl (Zofran Inj) 4 mg Q6H PRN IV NAUSEA AND/OR VOMITING; Start at 00:00 Acetaminophen (Tylenol Tab) 650 mg Q6H PRN PO PAIN LEVEL 1-3 OR FEVER; Start at 00:00 Docusate Sodium (Colace) 100 mg Q12H PRN PO CONSTIPATION; Start 01/28/17 at 00: 00 Clonazepam (Klonopin) 0.5 mg QHS PRN PO Insomnia Last administered on 21:55; Admin Dose 0.5 MG; Start 01/28/17 at 21:30 BRYSON MONREAL MD Jan 28, 2017 23:56
[2017-01-29] VITALS (8 sets, daily range): BP systolic 127–140; BP diastolic 70–77; PULSE 51–76; RESP 18–19
[2017-01-29] MEDS ORDERED: LEVO50TA74 PO (02:44)
[2017-01-29] MEDS: DEXTROSE 5%-0.45% NACL 1,000 ML IV SCH ×3 (03:54→21:11)
[2017-01-29] MEDS: LEVOTHYROXINE 50 MCG TAB PO SCH (06:16)
[2017-01-29 06:52] LABS: ADD SCAN DIFF NO
[2017-01-29 07:06] LABS: BASOPHILS % 0.4 % (0.0-2.0); EOSINOPHILS # 0.1 10^3/ul (0.0-0.5); EOSINOPHILS % 1.5 % (0.0-7.0); HEMATOCRIT 31.5 % (37.0-47.0); HEMOGLOBIN 10.1 g/dl (12.0-16.0); LYMPHOCYTES # 2.3 10^3/ul (0.8-2.9); LYMPHOCYTES % 34.5 % (15.0-51.0); MEAN CORPUSCULAR HEMOGLOBIN 26.1 pg (29.0-33.0); MEAN CORPUSCULAR HGB CONC 32.1 g/dl (32.0-37.0); MEAN CORPUSCULAR VOLUME 81.4 fl (82.0-101.0); MEAN PLATELET VOLUME 11.5 fl (7.4-10.4); MONOCYTE # 0.5 10^3/ul (0.3-0.9); MONOCYTES % 7.9 % (0.0-11.0); NEUTROPHIL # 3.7 10^3/ul (1.6-7.5); NEUTROPHILS % 55.4 % (39.0-77.0); PLATELET COUNT 211 10^3/UL (140-415); RED BLOOD COUNT 3.87 10^6/ul (4.20-5.40); RED CELL DISTRIBUTION WIDTH 18.1 % (11.5-14.5); WHITE BLOOD COUNT 6.8 10^3/ul (4.8-10.8)
[2017-01-29 07:40] LABS: ALBUMIN 3.8 g/dl (3.3-4.9); ALBUMIN/GLOBULIN RATIO 1.72; BILIRUBIN,INDIRECT 0.2 mg/dl (0-1.1); BILIRUBIN,TOTAL 0.2 mg/dl (0.2-1.3); CALCIUM 8.7 mg/dl (8.4-10.2); CREATININE 0.68 mg/dl (0.44-1.00)
--- NOTE | 2017-01-29 11:54 | PN ---
Date/Time of Note Date/Time of Note DATE: 01/29/17 TIME: 11:49 Assessment/Plan VTE Prophylaxis VTE Prophylaxis Intervention: SCD's Lines/Catheters IV Catheter Type (from Nrs): Peripheral IV Assessment/Plan Assessment/Plan IMPRESSION 1. Acute Encephalopathy secondary to methamphetamine and alcohol 2. Homicidal Ideation with likely suicide attempt: Per, ER note Police report states that patient was walking around with knives, and when asked why she states that she would hurt her mother and sister. 3. Acute kidney injury: resolved 3. History of schizophrenia. 4. History of hyperthyroidism. 5. History of polysubstance abuse. 6. Metabolic Acidosis: improving 7. Recent right hand fx s/p surgery with placement of Bong: per pt at [place] about a month ago: healing well PLAN - Cont 1:1 sitter (Per, ER note Police report states that patient was walking around with knives, and when asked why she states that she would hurt her mother and sister). currently she looks comfortable, answering questions appropriately. Denied SI or HI. no complaints now. She is willing to talk to telepsych and go to AA meetings - Utox positive for amphetamine and etoh level is elevated. Will start pt on Banana bag. - will start Seroquel 200mg po qhs. She will have a telepsych eval - Resume thyroid med - transfer and line up worker on board Subjective Subjective 24 Hr Interval Summary Free Text/Dictation looks comfortable. answering questions appropriately. Denied SI or HI. no complaints now Exam/Review of Systems Vital Signs Vitals Vital Signs Date Time Temp Pulse Resp B/P Pulse Ox O2 Delivery O2 Flow Rate FiO2 01/29/17 08:43 56 01/29/17 08:11 98.1 18 127/77 99 01/28/17 18:12 Room Air Intake and Output 01/28/17 01/28/17 01/29/17 15:00 23:00 07:00 Intake Total 1000 ml 300 ml Balance 1000 ml 300 ml Exam Constitutional: alert, oriented, other (looks nervous. extremity tremor noted) Head: atraumatic, normocephalic Respiratory: clear to auscultation, normal air movement Cardiovascular: nl pulses, regular rate and rhythm Gastrointestinal: non-tender, soft Extremities: right forearm surgical site on wrist healing well. dry flaky right hand Results Result Diagram: 01/29/1715 6/23/17 0615 Results 24 hrs Laboratory Tests Test 01/29/17 06:15 White Blood Count 6.8 Red Blood Count 3.87 L Hemoglobin 10.1 L Hematocrit 31.5 L Mean Corpuscular Volume 81.4 L Mean Corpuscular Hemoglobin 26.1 L Mean Corpuscular Hemoglobin Concent 32.1 Red Cell Distribution Width 18.1 H Platelet Count 211 Mean Platelet Volume 11.5 H Neutrophils % 55.4 Lymphocytes % 34.5 Monocytes % 7.9 Eosinophils % 1.5 Basophils % 0.4 Nucleated Red Blood Cells % 0.0 Neutrophils # 3.7 Lymphocytes # 2.3 Monocytes # 0.5 Eosinophils # 0.1 Basophils # 0.0 Nucleated Red Blood Cells # 0.0 Sodium Level 138 Potassium Level 4.0 Chloride Level 110 Carbon Dioxide Level 23 Anion Gap 9 Blood Urea Nitrogen 10 Creatinine 0.68 Glucose Level 90 Calcium Level 8.7 Total Bilirubin 0.2 Direct Bilirubin 0.00 Indirect Bilirubin 0.2 Aspartate Amino Transf (AST/SGOT) 53 H Alanine Aminotransferase (ALT/SGPT) 30 Alkaline Phosphatase 51 Total Protein 6.0 L Albumin 3.8 Globulin 2.20 Albumin/Globulin Ratio 1.72 Medications Medications Current Medications Ondansetron HCl (Zofran Inj) 4 mg Q6H PRN IV NAUSEA AND/OR VOMITING; Start at 00:00 Acetaminophen (Tylenol Tab) 650 mg Q6H PRN PO PAIN LEVEL 1-3 OR FEVER; Start at 00:00 Docusate Sodium (Colace) 100 mg Q12H PRN PO CONSTIPATION; Start 01/28/17 at 00: 00 Clonazepam (Klonopin) 0.5 mg QHS PRN PO Insomnia Last administered on t 21:55; Admin Dose 0.5 MG; Start 01/28/17 at 21:30 Quetiapine Fumarate 200 mg 200 mg QHS PO ; Start 01/29/17 at 21:00 Multivitamins 10 ml/Thiamine HCl 100 mg/Folic Acid 1 mg/Sodium Chloride 1,011.2 ml @ 125 mls/ hr DAILY@09 IVPB ; Start 01/29/17 at 09:00; Stop 02/01/17 at 08: 59 Dextrose/Sodium Chloride (D5-1/2ns) 1,000 ml @ 100 mls/hr Q10H IV Last administered on 01/29/17 03:54; Admin Dose 100 MLS/HR; Start 01/29/17 at 00:00 Levothyroxine Sodium (Synthroid) 50 mcg DAILY@06 PO Last administered on 06:16; Admin Dose 50 MCG; Start 01/29/17 at 06:00 BRYSON MONREAL MD Jan 29, 2017 11:54
[2017-01-29] MEDS: MULTIVITAMINS 10 ML, THIAMINE 100 MG, FOLIC ACID 1 MG in SOD CHLORIDE 0.9% 1,000 ML IVPB SCH (12:10)
--- NOTE | 2017-01-29 12:53 | PSY ---
Date/Time of Note Date/Time of Note DATE: 01/29/17 TIME: 12:40 Psychiatric Subjective Eval Subjective Evaluation Patient location: inpatient History of present illness Spoke with Dr Lopes; pt is 31 yo female with hx schizophrenia and PSD (alcohol and meth) BIB EMS because she was intoxicated, ODdon Synthroid and also was threatening to kill her sister and her mother while holding a knife. Pt is calm and cooperative now. She says she has not recollection of the events because she was drinking. She actually gives me a history quite diffrenet from the one she provided on her previous psychiatric consultation in the past - today she reports no prior hospitalization , except "once", no hx prior psych meds, says she was prescribed none; denies drug use,s ays she is employed and lives with her motehr (last time told me she is homeless and not allowed in her mother's house). [place] AH or Vh, denies depression, denies si or hi. Past psychiatric history multiple inpt Hospitalization: Suicidal Attempt(s) Family History denies Medical history Problems Medical Problems: (1) Acute psychosis Status: Acute (2) Alcohol intoxication Status: Acute (3) Amphetamine abuse Status: Acute (4) Amphetamine abuse Status: Acute (5) Dehydration Status: Acute (6) Drug overdose Status: Acute (7) Leukocytosis Status: Acute (8) Methamphetamine use Status: Acute (9) Poisoning by Synthroid Status: Acute (10) Psychosis Status: Acute (11) Renal insufficiency Status: Acute (12) SIRS (systemic inflammatory response syndrome) Status: Acute Allergies: Coded Allergies: No Known Allergy (Unverified , 06/26/16) Substance Abuse Substance abuse history: Yes Prior substance abuse treatmen: Yes Social History Marital status: single Level of education: hs DPA/Conservatorship: No Psychiatric Objective Eval Mental Status Examination: Appearance: Disheveled Eye Contact: Good Psychomotor Activity: Normal Behavior: Cooperative Speech: Clear AFFECT: Appropriate Mood: Appropriate/Full Though Process: Linear Thought Content: Normal Suicidal: No Homicidal: No On 72 hour hold: Yes Orientation: x3 Cognition: Alert Insight: Impared Judgement: Impared Laboratory Results Laboratory Tests Test 01/27/17 16:15 01/27/17 19:20 01/28/17 05:54 01/29/17 06:15 White Blood Count 16.910^3/ul 7.710^3/ul 6.810^3/ul Red Blood Count 5.3910^6/ul 3.7810^6/ul 3.8710^6/ul Hemoglobin 14.3g/dl 10.1g/dl 10.1g/dl Hematocrit 43.2% 30.6% 31.5% Mean Corpuscular Volume 80.1fl 81.0fl 81.4fl Mean Corpuscular Hemoglobin 26.5pg 26.7pg 26.1pg Mean Corpuscular Hemoglobin Concent 33.1g/dl 33.0g/dl 32.1g/dl Red Cell Distribution Width 17.7% 17.8% 18.1% Platelet Count 13651^3/UL 82067^3/UL 54896^3/UL Mean Platelet Volume 11.0fl 11.4fl 11.5fl Neutrophils % 71.8% 57.3% 55.4% Lymphocytes % 19.6% 31.7% 34.5% Monocytes % 6.9% 8.9% 7.9% Eosinophils % 0.5% 1.2% 1.5% Basophils % 0.5% 0.4% 0.4% Nucleated Red Blood Cells % 0.0/100WBC 0.0/100WBC 0.0/100WBC Neutrophils # 12.110^3/ul 4.410^3/ul 3.710^3/ul Lymphocytes # 3.310^3/ul 2.510^3/ul 2.310^3/ul Monocytes # 1.210^3/ul 0.710^3/ul 0.510^3/ul Eosinophils # 0.110^3/ul 0.110^3/ul 0.110^3/ul Basophils # 0.110^3/ul 0.010^3/ul 0.010^3/ul Nucleated Red Blood Cells # 0.010^3/ul 0.010^3/ul 0.010^3/ul Sodium Level 142mmol/L 139mmol/L 138mmol/L Potassium Level 4.5mmol/L 4.7mmol/L 4.0mmol/L Chloride Level 108mmol/L 112mmol/L 110mmol/L Carbon Dioxide Level 16mmol/L 20mmol/L 23mmol/L Anion Gap 23 12 9 Blood Urea Nitrogen 17mg/dl 14mg/dl 10mg/dl Creatinine 1.57mg/dl 0.65mg/dl 0.68mg/dl Glucose Level 80mg/dl 87mg/dl 90mg/dl Calcium Level 10.3mg/dl 8.7mg/dl 8.7mg/dl Total Bilirubin 0.3mg/dl 0.3mg/dl 0.2mg/dl Direct Bilirubin 0.00mg/dl 0.00mg/dl 0.00mg/dl Indirect Bilirubin 0.3mg/dl 0.3mg/dl 0.2mg/dl Aspartate Amino Transf (AST/SGOT) 28IU/L 22IU/L 53IU/L Alanine Aminotransferase (ALT/SGPT) 26IU/L 25IU/L 30IU/L Alkaline Phosphatase 71IU/L 47IU/L 51IU/L Total Protein 8.9g/dl 5.8g/dl 6.0g/dl Albumin 5.5g/dl 3.7g/dl 3.8g/dl Globulin 3.40g/dl 2.10g/dl 2.20g/dl Albumin/Globulin Ratio 1.61 1.76 1.72 Thyroid Stimulating Hormone (TSH) 0.061MIU/L Free Thyroxine Index 6.19ug/ml Thyroxine (T4) 17.0ug/dl Triiodothyronine (T3) Uptake 36.4% Salicylates Level < 1.0mg/dl Acetaminophen Level < 10.0ug/ml Ethyl Alcohol Level 427.0mg/dl Urine Color STRAW Urine Clarity CLEAR Urine pH 5.0 Urine Specific [place] 1.008 Urine Ketones NEGATIVEmg/dL Urine Nitrite NEGATIVEmg/dL Urine Bilirubin NEGATIVEmg/dL Urine Urobilinogen NEGATIVEmg/dL Urine Leukocyte Esterase NEGATIVELeu/ul Urine Hemoglobin NEGATIVEmg/dL Urine Glucose NEGATIVEmg/dL Urine Total Protein NEGATIVEmg/dl Urine Opiates Screen Negative Urine Barbiturates Negative Urine Amphetamines Screen Positive Urine Benzodiazepines Screen Negative Urine Cocaine Screen Negative Urine Cannabinoids Negative Hemoglobin A1c 5.4% Phosphorus Level 3.1mg/dl Magnesium Level 1.7mg/dl Assessment and Plan Assessment/Diagnosis [place] I: SCHIZOAFFECTIVE D/O AMPHETAMINE USE DISORDER. ALCOHOL USE DISORDER [place] II: DEFERED [place] III: PER RECORD [place] IV: SEVERE [place] V: GAF 25 Recommendation/Plan Medication Management ZYPREXA 10 MG PO BID Psychotherapy DEFER TO INPT Pt. Caregiver/Family Education SW - PLEASE FILE [facility] Follow-up/Disposition 5150 FOR DTO, DTS, TRANSFER TO INPT PSYCH. LEO PEREIRA MD Jan 29, 2017 12:50
[2017-01-29] MEDS ORDERED: QUETIAPINE 100 MG TAB PO SCH (21:00)
[2017-01-29] MEDS: clonAZEPAM 0.5 MG TAB PO PRN (21:10)
[2017-01-30] VITALS (14 sets, daily range): BP systolic 95–130; BP diastolic 60–86; PULSE 45–57; RESP 18–20
[2017-01-30] MEDS: LEVOTHYROXINE 50 MCG TAB PO SCH (06:27)
[2017-01-30] MEDS: DEXTROSE 5%-0.45% NACL 1,000 ML IV SCH ×2 (06:28→19:12)
[2017-01-30] MEDS: MULTIVITAMINS 10 ML, THIAMINE 100 MG, FOLIC ACID 1 MG in SOD CHLORIDE 0.9% 1,000 ML IVPB SCH (09:56)
--- NOTE | 2017-01-30 19:34 | PN ---
Date/Time of Note Date/Time of Note DATE: 01/30/17 TIME: 19:32 Assessment/Plan VTE Prophylaxis VTE Prophylaxis Intervention: SCD's Lines/Catheters IV Catheter Type (from Nrs): Peripheral IV Assessment/Plan Assessment/Plan IMPRESSION 1. Acute Encephalopathy secondary to methamphetamine and alcohol 2. Homicidal Ideation with likely suicide attempt: Per, ER note Police report states that patient was walking around with knives, and when asked why she states that she would hurt her mother and sister. On 5150 hold since yesterday 3. Acute kidney injury: resolved 3. History of schizophrenia. 4. History of hyperthyroidism. 5. History of polysubstance abuse. 6. Metabolic Acidosis: improving 7. Recent right hand fx s/p surgery with placement of Bong: per pt at [place] about a month ago: healing well PLAN - Cont 1:1 sitter (Per, ER note Police report states that patient was walking around with knives, and when asked why she states that she would hurt her mother and sister). currently she looks comfortable, answering questions appropriately. Denied SI or HI. no complaints now. She is willing to talk to telepsych and go to AA meetings - Utox positive for amphetamine and etoh level is elevated. Will start pt on Banana bag. - will start Seroquel 200mg po qhs. Per telepsych, she's on 5150 - Resume thyroid med - older worker specialist on board Subjective 24 Hr Interval Summary Free Text/Dictation looks comfortable. denied SI and HI Exam/Review of Systems Vital Signs Vitals Vital Signs Date Time Temp Pulse Resp B/P Pulse Ox O2 Delivery O2 Flow Rate FiO2 01/30/17 19:13 98.2 74 19 128/79 99 01/28/17 18:12 Room Air Intake and Output 01/29/17 01/29/17 01/30/17 15:00 23:00 07:00 Intake Total 200 ml 1750 ml Balance 200 ml 1750 ml Exam Constitutional: alert, oriented, other (looks nervous. extremity tremor noted) Head: atraumatic, normocephalic Respiratory: clear to auscultation, normal air movement Cardiovascular: nl pulses, regular rate and rhythm Gastrointestinal: non-tender, soft Extremities: right forearm surgical site on wrist healing well. dry flaky right hand Results Result Diagram: 01/29/1715 6/23/17 0615 Medications Medications Current Medications Ondansetron HCl (Zofran Inj) 4 mg Q6H PRN IV NAUSEA AND/OR VOMITING; Start at 00:00 Acetaminophen (Tylenol Tab) 650 mg Q6H PRN PO PAIN LEVEL 1-3 OR FEVER; Start at 00:00 Docusate Sodium (Colace) 100 mg Q12H PRN PO CONSTIPATION; Start 01/28/17 at 00: 00 Clonazepam (Klonopin) 0.5 mg QHS PRN PO Insomnia Last administered on 21:10; Admin Dose 0.5 MG; Start 01/28/17 at 21:30 Quetiapine Fumarate 200 mg 200 mg QHS PO Last administered on 01/29/17 23:31; Admin Dose 200 MG; Start 01/29/17 at 21:00 Multivitamins 10 ml/Thiamine HCl 100 mg/Folic Acid 1 mg/Sodium Chloride 1,011.2 ml @ 125 mls/ hr DAILY@09 IVPB Last administered on 01/30/17 09:56; Admin Dose 125 MLS/HR; Start 01/29/17 at 09:00; Stop 02/01/17 at 08:59 Dextrose/Sodium Chloride (D5-1/2ns) 1,000 ml @ 100 mls/hr Q10H IV Last administered on 01/30/17 19:12; Admin Dose 100 MLS/HR; Start 01/29/17 at 00:00 Levothyroxine Sodium (Synthroid) 50 mcg DAILY@06 PO Last administered on 06:27; Admin Dose 50 MCG; Start 01/29/17 at 06:00 BRYSON MONREAL MD Jan 30, 2017 19:34
[2017-01-30] MEDS: OLANZAPINE 5 MG TAB PO SCH (21:00)
[2017-01-30] MEDS: clonAZEPAM 0.5 MG TAB PO PRN (21:22)
[2017-01-31] VITALS (11 sets, daily range): BP systolic 98–118; BP diastolic 59–74; PULSE 50–77; RESP 18–19
[2017-01-31] MEDS: DEXTROSE 5%-0.45% NACL 1,000 ML IV SCH ×4 (05:00→22:53)
[2017-01-31] MEDS: LEVOTHYROXINE 50 MCG TAB PO SCH (06:00)
[2017-01-31 07:31] LABS: ADD SCAN DIFF NO
[2017-01-31 07:52] LABS: BASOPHIL # 0.1 10^3/ul (0.0-0.1); BASOPHILS % 0.6 % (0.0-2.0); EOSINOPHILS # 0.2 10^3/ul (0.0-0.5); EOSINOPHILS % 2.3 % (0.0-7.0); HEMATOCRIT 36.3 % (37.0-47.0); HEMOGLOBIN 11.4 g/dl (12.0-16.0); MEAN CORPUSCULAR HEMOGLOBIN 26.1 pg (29.0-33.0); MEAN CORPUSCULAR HGB CONC 31.4 g/dl (32.0-37.0); MEAN CORPUSCULAR VOLUME 83.1 fl (82.0-101.0); MEAN PLATELET VOLUME 11.8 fl (7.4-10.4); MONOCYTE # 0.7 10^3/ul (0.3-0.9); MONOCYTES % 8.8 % (0.0-11.0); NEUTROPHILS % 63.2 % (39.0-77.0); PLATELET COUNT 209 10^3/UL (140-415); RED BLOOD COUNT 4.37 10^6/ul (4.20-5.40); RED CELL DISTRIBUTION WIDTH 18.3 % (11.5-14.5)
[2017-01-31 08:08] LABS: ALBUMIN 4.2 g/dl (3.3-4.9); ALBUMIN/GLOBULIN RATIO 1.75; BILIRUBIN,INDIRECT 0.1 mg/dl (0-1.1); BILIRUBIN,TOTAL 0.1 mg/dl (0.2-1.3); CALCIUM 8.7 mg/dl (8.4-10.2); CREATININE 0.7 mg/dl (0.44-1.00); TOTAL PROTEIN 6.6 g/dl (6.1-8.1)
[2017-01-31] MEDS: OLANZAPINE 5 MG TAB PO SCH (09:00)
[2017-01-31] MEDS: MULTIVITAMINS 10 ML, THIAMINE 100 MG, FOLIC ACID 1 MG in SOD CHLORIDE 0.9% 1,000 ML IVPB SCH (09:12)
--- NOTE | 2017-01-31 20:05 | PN ---
Date/Time of Note Date/Time of Note DATE: 01/31/17 TIME: 20:04 Assessment/Plan VTE Prophylaxis VTE Prophylaxis Intervention: SCD's Lines/Catheters IV Catheter Type (from Nrs): Peripheral IV Assessment/Plan Assessment/Plan IMPRESSION 1. Acute Encephalopathy secondary to methamphetamine and alcohol 2. Homicidal Ideation with likely suicide attempt: Per, ER note Police report states that patient was walking around with knives, and when asked why she states that she would hurt her mother and sister. On 5150 hold since yesterday 3. Acute kidney injury: resolved 3. History of schizophrenia. 4. History of hyperthyroidism. 5. History of polysubstance abuse. 6. Metabolic Acidosis: improving 7. Recent right hand fx s/p surgery with placement of Bong: per pt at [place] about a month ago: healing well PLAN - Cont 1:1 sitter (Per, ER note Police report states that patient was walking around with knives, and when asked why she states that she would hurt her mother and sister). currently she looks comfortable, answering questions appropriately. Denied SI or HI. no complaints now. She is willing to talk to telepsych and go to AA meetings - Utox positive for amphetamine and etoh level is elevated. Will start pt on Banana bag. - will start Seroquel 200mg po qhs. Per telepsych, she's on 5150 - Resume thyroid med - animal care service worker on board Subjective 24 Hr Interval Summary Free Text/Dictation feeling well. denied SI or HI Exam/Review of Systems Vital Signs Vitals Vital Signs Date Time Temp Pulse Resp B/P Pulse Ox O2 Delivery O2 Flow Rate FiO2 01/31/17 19:55 97.8 57 18 118/69 100 01/28/17 18:12 Room Air Intake and Output 01/30/17 01/30/17 01/31/17 15:00 23:00 07:00 Intake Total 1000 ml 1200 ml Balance 1000 ml 1200 ml Exam Constitutional: alert, oriented, other (looks nervous. extremity tremor noted) Head: atraumatic, normocephalic Respiratory: clear to auscultation, normal air movement Cardiovascular: nl pulses, regular rate and rhythm Gastrointestinal: non-tender, soft Extremities: right forearm surgical site on wrist healing well. dry flaky right hand Results Result Diagram: 01/31/17 0640 01/31/17 0640 Results 24 hrs Laboratory Tests Test 01/31/17 06:40 White Blood Count 8.0 Red Blood Count 4.37 Hemoglobin 11.4 L Hematocrit 36.3 L Mean Corpuscular Volume 83.1 Mean Corpuscular Hemoglobin 26.1 L Mean Corpuscular Hemoglobin Concent 31.4 L Red Cell Distribution Width 18.3 H Platelet Count 209 Mean Platelet Volume 11.8 H Neutrophils % 63.2 Lymphocytes % 25.0 Monocytes % 8.8 Eosinophils % 2.3 Basophils % 0.6 Nucleated Red Blood Cells % 0.0 Neutrophils # 5.0 Lymphocytes # 2.0 Monocytes # 0.7 Eosinophils # 0.2 Basophils # 0.1 Nucleated Red Blood Cells # 0.0 Sodium Level 139 Potassium Level 4.0 Chloride Level 107 Carbon Dioxide Level 23 Anion Gap 13 Blood Urea Nitrogen 12 Creatinine 0.70 Glucose Level 78 Calcium Level 8.7 Total Bilirubin 0.1 L Direct Bilirubin 0.00 Indirect Bilirubin 0.1 Aspartate Amino Transf (AST/SGOT) 31 Alanine Aminotransferase (ALT/SGPT) 29 Alkaline Phosphatase 51 Total Protein 6.6 Albumin 4.2 Globulin 2.40 Albumin/Globulin Ratio 1.75 Medications Medications Current Medications Ondansetron HCl (Zofran Inj) 4 mg Q6H PRN IV NAUSEA AND/OR VOMITING; Start at 00:00 Acetaminophen (Tylenol Tab) 650 mg Q6H PRN PO PAIN LEVEL 1-3 OR FEVER; Start at 00:00 Docusate Sodium (Colace) 100 mg Q12H PRN PO CONSTIPATION; Start 01/28/17 at 00: 00 Clonazepam 0.5 mg 0.5 mg QHS PRN PO Insomnia Last administered on 01/30/17 21 :22; Admin Dose 0.5 MG; Start 01/28/17 at 21:30 Multivitamins 10 ml/Thiamine HCl 100 mg/Folic Acid 1 mg/Sodium Chloride 1,011.2 ml @ 125 mls/ hr DAILY@09 IVPB Last administered on 01/31/17 09:12; Admin Dose 125 MLS/HR; Start 01/29/17 at 09:00; Stop 02/01/17 at 08:59 Dextrose/Sodium Chloride (D5-1/2ns) 1,000 ml @ 100 mls/hr Q10H IV Last administered on 01/31/17 17:14; Admin Dose 100 MLS/HR; Start 01/29/17 at 00:00 Levothyroxine Sodium (Synthroid) 50 mcg DAILY@06 PO Last administered on 06:00; Admin Dose 50 MCG; Start 01/29/17 at 06:00 Quetiapine Fumarate (Seroquel) 100 mg HS PO ; Start 01/31/17 at 21:00 BRYSON MONREAL MD Jan 31, 2017 20:05
[2017-01-31] MEDS: QUETIAPINE 100 MG TAB PO SCH (21:50)
[2017-01-31] MEDS: clonAZEPAM 0.5 MG TAB PO PRN (22:53)
[2017-02-01] VITALS (12 sets, daily range): BP systolic 94–120; BP diastolic 49–79; PULSE 53–76; RESP 18–19
[2017-02-01] MEDS: LEVOTHYROXINE 50 MCG TAB PO SCH (06:09)
[2017-02-01 08:06] LABS: ADD SCAN DIFF NO
[2017-02-01 08:07] LABS: BASOPHILS % 0.5 % (0.0-2.0); EOSINOPHILS # 0.2 10^3/ul (0.0-0.5); EOSINOPHILS % 1.9 % (0.0-7.0); HEMATOCRIT 35.1 % (37.0-47.0); HEMOGLOBIN 11.2 g/dl (12.0-16.0); LYMPHOCYTES # 2.3 10^3/ul (0.8-2.9); LYMPHOCYTES % 29.2 % (15.0-51.0); MEAN CORPUSCULAR HEMOGLOBIN 26.4 pg (29.0-33.0); MEAN CORPUSCULAR HGB CONC 31.9 g/dl (32.0-37.0); MEAN CORPUSCULAR VOLUME 82.6 fl (82.0-101.0); MEAN PLATELET VOLUME 11.1 fl (7.4-10.4); MONOCYTE # 0.7 10^3/ul (0.3-0.9); MONOCYTES % 8.5 % (0.0-11.0); NEUTROPHIL # 4.6 10^3/ul (1.6-7.5); NEUTROPHILS % 59.6 % (39.0-77.0); PLATELET COUNT 208 10^3/UL (140-415); RED BLOOD COUNT 4.25 10^6/ul (4.20-5.40); RED CELL DISTRIBUTION WIDTH 18.5 % (11.5-14.5); WHITE BLOOD COUNT 7.8 10^3/ul (4.8-10.8)
[2017-02-01] MEDS: DEXTROSE 5%-0.45% NACL 1,000 ML IV SCH (08:32)
[2017-02-01 08:45] LABS: ALBUMIN 4.2 g/dl (3.3-4.9); ALBUMIN/GLOBULIN RATIO 1.68; BILIRUBIN,INDIRECT 0.2 mg/dl (0-1.1); BILIRUBIN,TOTAL 0.2 mg/dl (0.2-1.3); CALCIUM 8.8 mg/dl (8.4-10.2); CREATININE 0.74 mg/dl (0.44-1.00); POTASSIUM 3.7 mmol/L (3.5-5.1); TOTAL PROTEIN 6.7 g/dl (6.1-8.1)
--- NOTE | 2017-02-01 14:59 | PN ---
Date/Time of Note Date/Time of Note DATE: 02/01/17 TIME: 14:57 Assessment/Plan VTE Prophylaxis VTE Prophylaxis Intervention: SCD's Lines/Catheters IV Catheter Type (from Nrs): Peripheral IV Assessment/Plan Assessment/Plan 1. Acute Encephalopathy secondary to methamphetamine and alcohol 2. Homicidal Ideation with likely suicide attempt: Per, ER note Police report states that patient was walking around with knives, and when asked why she states that she would hurt her mother and sister. On 5150 hold since yesterday 3. Acute kidney injury: resolved 3. History of schizophrenia. 4. History of hyperthyroidism. 5. History of polysubstance abuse. 6. Metabolic Acidosis: improving 7. Recent right hand fx s/p surgery with placement of Bong: per pt at [facility] about a month ago: healing well PLAN - Cont 1:1 sitter (Per, ER note Police report states that patient was walking around with knives, and when asked why she states that she would hurt her mother and sister). currently she looks comfortable, answering questions appropriately. Denied SI or HI. no complaints now. 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 extremity tremor noted) Head: atraumatic, normocephalic Respiratory: clear to auscultation, normal air movement Cardiovascular: nl pulses, regular rate and rhythm Gastrointestinal: non-tender, soft Extremities: right forearm surgical site on wrist healing well. dry flaky right hand Results Result Diagram: 02/01/17 0625 02/01/17 0625 Results 24 hrs Laboratory Tests Test 02/01/17 06:25 White Blood Count 7.8 Red Blood Count 4.25 Hemoglobin 11.2 L Hematocrit 35.1 L Mean Corpuscular Volume 82.6 Mean Corpuscular Hemoglobin 26.4 L Mean Corpuscular Hemoglobin Concent 31.9 L Red Cell Distribution Width 18.5 H Platelet Count 208 Mean Platelet Volume 11.1 H Neutrophils % 59.6 Lymphocytes % 29.2 Monocytes % 8.5 Eosinophils % 1.9 Basophils % 0.5 Nucleated Red Blood Cells % 0.0 Neutrophils # 4.6 Lymphocytes # 2.3 Monocytes # 0.7 Eosinophils # 0.2 Basophils # 0.0 Nucleated Red Blood Cells # 0.0 Sodium Level 137 Potassium Level 3.7 Chloride Level 108 Carbon Dioxide Level 23 Anion Gap 10 Blood Urea Nitrogen 17 Creatinine 0.74 Glucose Level 90 Calcium Level 8.8 Total Bilirubin 0.2 Direct Bilirubin 0.00 Indirect Bilirubin 0.2 Aspartate Amino Transf (AST/SGOT) 24 Alanine Aminotransferase (ALT/SGPT) 26 Alkaline Phosphatase 47 Total Protein 6.7 Albumin 4.2 Globulin 2.50 Albumin/Globulin Ratio 1.68 Medications Medications Current Medications Ondansetron HCl (Zofran Inj) 4 mg Q6H PRN IV NAUSEA AND/OR VOMITING; Start at 00:00 Acetaminophen (Tylenol Tab) 650 mg Q6H PRN PO PAIN LEVEL 1-3 OR FEVER; Start at 00:00 Docusate Sodium (Colace) 100 mg Q12H PRN PO CONSTIPATION; Start 01/28/17 at 00: 00 Clonazepam (Klonopin) 0.5 mg QHS PRN PO Insomnia Last administered on 22:53; Admin Dose 0.5 MG; Start 01/28/17 at 21:30 Levothyroxine Sodium (Synthroid) 50 mcg DAILY@06 PO Last administered on 06:09; Admin Dose 50 MCG; Start 01/29/17 at 06:00 Quetiapine Fumarate (Seroquel) 100 mg HS PO Last administered on 01/31/17 21: 50; Admin Dose 100 MG; Start 01/31/17 at 21:00 TIANNA MASSEY MD Feb 01, 2017 14:59
[2017-02-01] MEDS ORDERED: ONDANSETRON 4 MG TAB PO PRN (15:00)
--- NOTE | 2017-02-01 16:05 | PSY ---
Date/Time of Note Date/Time of Note DATE: 02/01/17 TIME: 15:59 Psychiatric Subjective Eval Consent Pt consented to telemedicine: Yes Subjective Evaluation Patient location: inpatient Chief Complaint: "Police lied, I never chased my siser with a knife" Reason for consult: re-eval History of present illness Spoke with Krystle; pt is 31 yo female with hx schizophrenia and PSD (alcohol and meth) BIB EMS because she was intoxicated, ODdon Synthroid and also was threatening to kill her sister and her mother while holding a knife. Pt was seen 2 days ago; she is still calm and cooperative now. She says she is not suicidal, she will go home to her motehr and the police lied and she nver chaiced her sister with a knife; 2 days ago she actually said, she has not recollection of the events because she was drinking. She actually gives me a history quite diffrenet from the one she provided on her previous psychiatric consultation in the past - today she reports no prior hospitalization , except "once", no hx prior psych meds, says she was prescribed none; denies drug use,s ays she is employed and lives with her mother (last time told me she is homeless and not allowed in her mother's house). Nicanor AH or Vh, denies depression, denies si or hi. Past psychiatric history see prior eval Hospitalization: yes Medical history Problems Medical Problems: (1) Acute psychosis Status: Acute (2) Alcohol intoxication Status: Acute (3) Amphetamine abuse Status: Acute (4) Amphetamine abuse Status: Acute (5) Dehydration Status: Acute (6) Drug overdose Status: Acute (7) Leukocytosis Status: Acute (8) Methamphetamine use Status: Acute (9) Poisoning by Synthroid Status: Acute (10) Psychosis Status: Acute (11) Renal insufficiency Status: Acute (12) SIRS (systemic inflammatory response syndrome) Status: Acute Allergies: Coded Allergies: olanzapine (Verified Adverse Reaction, Severe, fainting, vomiting, dizziness, 01/31/17) Substance Abuse Substance abuse history: Yes Prior substance abuse treatmen: Yes Social History Marital status: single Level of education: DPA/Conservatorship: No Psychiatric Objective Eval Mental Status Examination: Appearance: Disheveled Eye Contact: Good Psychomotor Activity: Normal Behavior: Cooperative Speech: Clear AFFECT: Appropriate Mood: Anxious Though Process: Circumstantial Thought Content: Normal Suicidal: Yes Homicidal: Yes On 72 hour hold: Yes Orientation: x4 Cognition: Alert Insight: Impared Judgement: Impared Laboratory Results Laboratory Tests Test 01/31/17 06:40 02/01/17 06:25 White Blood Count 8.010^3/ul 7.810^3/ul Red Blood Count 4.3710^6/ul 4.2510^6/ul Hemoglobin 11.4g/dl 11.2g/dl Hematocrit 36.3% 35.1% Mean Corpuscular Volume 83.1fl 82.6fl Mean Corpuscular Hemoglobin 26.1pg 26.4pg Mean Corpuscular Hemoglobin Concent 31.4g/dl 31.9g/dl Red Cell Distribution Width 18.3% 18.5% Platelet Count 85481^3/UL 14863^3/UL Mean Platelet Volume 11.8fl 11.1fl Neutrophils % 63.2% 59.6% Lymphocytes % 25.0% 29.2% Monocytes % 8.8% 8.5% Eosinophils % 2.3% 1.9% Basophils % 0.6% 0.5% Nucleated Red Blood Cells % 0.0/100WBC 0.0/100WBC Neutrophils # 5.010^3/ul 4.610^3/ul Lymphocytes # 2.010^3/ul 2.310^3/ul Monocytes # 0.710^3/ul 0.710^3/ul Eosinophils # 0.210^3/ul 0.210^3/ul Basophils # 0.110^3/ul 0.010^3/ul Nucleated Red Blood Cells # 0.010^3/ul 0.010^3/ul Sodium Level 139mmol/L 137mmol/L Potassium Level 4.0mmol/L 3.7mmol/L Chloride Level 107mmol/L 108mmol/L Carbon Dioxide Level 23mmol/L 23mmol/L Anion Gap 13 10 Blood Urea Nitrogen 12mg/dl 17mg/dl Creatinine 0.70mg/dl 0.74mg/dl Glucose Level 78mg/dl 90mg/dl Calcium Level 8.7mg/dl 8.8mg/dl Total Bilirubin 0.1mg/dl 0.2mg/dl Direct Bilirubin 0.00mg/dl 0.00mg/dl Indirect Bilirubin 0.1mg/dl 0.2mg/dl Aspartate Amino Transf (AST/SGOT) 31IU/L 24IU/L Alanine Aminotransferase (ALT/SGPT) 29IU/L 26IU/L Alkaline Phosphatase 51IU/L 47IU/L Total Protein 6.6g/dl 6.7g/dl Albumin 4.2g/dl 4.2g/dl Globulin 2.40g/dl 2.50g/dl Albumin/Globulin Ratio 1.75 1.68 Assessment and Plan Assessment/Diagnosis Java I: SCHIZOAFFECTIVE D/O AMPEHTAMINE USE DISORDER Java II: DEFERED Java III: PER RECORD Java IV: SEVERE Java V: GAF 25 Recommendation/Plan Medication Management CONTINUE ZYPREXA 10 MG PO BID Psychotherapy DEFER TO INPT Pt. Caregiver/Family Education SW - PLEASE EDUCATED THE FAMILY OF THE POSSIBILITY OF FILING TRO. Follow-up/Disposition 5150 FOR DTS, DTO; TRANSFER TO INPT PSYCH. 5150 Recommendation: Continue Hold LEO PEREIRA MD Feb 01, 2017 16:05
[2017-02-01] MEDS: QUETIAPINE 100 MG TAB PO SCH (20:26)
[2017-02-01] MEDS: clonAZEPAM 0.5 MG TAB PO PRN (23:19)
[2017-02-02] VITALS (10 sets, daily range): BP systolic 106–116; BP diastolic 52–76; PULSE 67–77; RESP 19–20
[2017-02-02] MEDS: LEVOTHYROXINE 50 MCG TAB PO SCH (06:31)
--- NOTE | 2017-02-02 17:50 | PN ---
Date/Time of Note Date/Time of Note DATE: 02/02/17 TIME: 17:49 Assessment/Plan VTE Prophylaxis VTE Prophylaxis Intervention: SCD's Lines/Catheters IV Catheter Type (from Nrsg): Saline Lock Assessment/Plan Assessment/Plan 1. Acute Encephalopathy secondary to methamphetamine and alcohol 2. Homicidal Ideation with likely suicide attempt: Per, ER note Police report states that patient was walking around with knives, and when asked why she states that she would hurt her mother and sister. On 5150 hold since yesterday 3. Acute kidney injury: resolved 3. History of schizophrenia. 4. History of hyperthyroidism. 5. History of polysubstance abuse. 6. Metabolic Acidosis: improving 7. Recent right hand fx s/p surgery with placement of Bong: per pt at [facility] about a month ago: healing well PLAN all medications are PO Tele Psych follow up pt is medically stable for Going to psych facility SW to follow up on that. Subjective 24 Hr Interval Summary Free Text/Dictation off telemetry , BP stable, afebrile Exam/Review of Systems Vital Signs Vitals Vital Signs Date Time Temp Pulse Resp B/P Pulse Ox O2 Delivery O2 Flow Rate FiO2 02/02/17 17:28 98.8 79 20 116/66 99 Intake and Output 02/01/17 02/01/17 02/02/17 15:00 23:00 07:00 Intake Total 600 ml 900 ml 400 ml Output Total 2000 ml Balance 600 ml -1100 ml 400 ml Exam Constitutional: alert, oriented, other (looks nervous. extremity tremor noted) Head: atraumatic, normocephalic Respiratory: clear to auscultation, normal air movement Cardiovascular: nl pulses, regular rate and rhythm Gastrointestinal: non-tender, soft Extremities: right forearm surgical site on wrist healing well. dry flaky right hand Results Result Diagram: 02/01/1762402/01/17624 Medications Medications Current Medications Acetaminophen (Tylenol Tab) 650 mg Q6H PRN PO PAIN LEVEL 1-3 OR FEVER; Start at 00:00 Docusate Sodium (Colace) 100 mg Q12H PRN PO CONSTIPATION; Start 01/28/17 at 00: 00 Clonazepam (Klonopin) 0.5 mg QHS PRN PO Insomnia Last administered on t 23:19; Admin Dose 0.5 MG; Start 01/28/17 at 21:30 Levothyroxine Sodium (Synthroid) 50 mcg DAILY@06 PO Last administered on 06:31; Admin Dose 50 MCG; Start 01/29/17 at 06:00 Quetiapine Fumarate (Seroquel) 100 mg HS PO Last administered on 02/01/17 20: 26; Admin Dose 100 MG; Start 01/31/17 at 21:00 Ondansetron HCl (Zofran Tab) 4 mg Q6H PRN PO NAUSEA AND/OR VOMITING; Start at 15:00 TIANNA MASSEY MD Feb 02, 2017 17:50
[2017-02-02] MEDS: QUETIAPINE 100 MG TAB PO SCH (21:50)
[2017-02-02] MEDS: clonAZEPAM 0.5 MG TAB PO PRN (22:02)
[2017-02-03] VITALS: BP 110/74; RESP 20
[2017-02-03 03:35] VITALS: BP 117/70; PULSE 88; RESP 18
[2017-02-03 04:06] VITALS: BP 117/70; RESP 20
[2017-02-03] MEDS: LEVOTHYROXINE 50 MCG TAB PO SCH (05:18)
[2017-02-03 08:00] VITALS: BP 95/54; PULSE 66; RESP 16
[2017-02-03] MEDS ORDERED: LEVO50TA74 PO (11:10)
--- NOTE | 2017-02-03 12:29 | PN ---
Date/Time of Note Date/Time of Note DATE: 02/03/17 TIME: 12:28 Assessment/Plan VTE Prophylaxis VTE Prophylaxis Intervention: SCD's Lines/Catheters IV Catheter Type (from Nrs): Saline Lock Assessment/Plan Assessment/Plan 1. Acute Encephalopathy secondary to methamphetamine and alcohol 2. Homicidal Ideation with likely suicide attempt: Per, ER note Police report states that patient was walking around with knives, and when asked why she states that she would hurt her mother and sister. On 5150 hold since yesterday 3. Acute kidney injury: resolved 3. History of schizophrenia. 4. History of hyperthyroidism. 5. History of polysubstance abuse. 6. Metabolic Acidosis: improving 7. Recent right hand fx s/p surgery with placement of Bong: per pt at [facility] about a month ago: healing well PLAN all medications are PO Tele Psych follow up pt is medically stable for Going to psych facility SW to follow up on that. Subjective 24 Hr Interval Summary Free Text/Dictation BP stable, afebrile, no fever, no chills Exam/Review of Systems Vital Signs Vitals Vital Signs Date Time Temp Pulse Resp B/P Pulse Ox O2 Delivery O2 Flow Rate FiO2 02/03/17 08:00 98.1 66 16 95/54 100 Room Air Intake and Output 02/02/17 02/02/17 02/03/17 14:59 22:59 06:59 Intake Total 950 ml 500 ml Balance 950 ml 500 ml Results Result Diagram: 02/01/17 0625 02/01/17 0625 TIANNA MASSEY MD Feb 03, 2017 12:29
--- NOTE | 2017-02-03 22:25 | DS ---
Date/Time of Note Date/Time of Note DATE: 02/03/17 TIME: 22:21 Discharge Summary Admission/Discharge Info Admit Date/Time Jan 27, 2017 at 22:12 Discharge Date/Time Feb 03, 2017 at 12:05 Discharge Diagnosis 1. Acute Encephalopathy secondary to methamphetamine and alcohol 2. Homicidal Ideation with likely suicide attempt: on 5250 hold 3. Acute kidney injury: resolved 3. History of schizophrenia. 4. History of hyperthyroidism. 5. History of polysubstance abuse. 6. Metabolic Acidosis: improving 7. Recent right hand fx s/p surgery with placement of Bong: per pt at [facility] about a month ago: healing well Patient Condition: Good Consults Tele psychiatry consultation was done Hx of Present Illness 31-year-old female with history of drug abuse with several visits to the ED for amphetamine abuse. The patient presents via ambulance after being found with very erratic behavior, not making sense. She does admit to using meth readily and did admit this to the ER doctor. The patient is currently very lethargic and is not providing me any history. Per the ER doctor, the patient had a bottle of Synthroid 100 mg tablets in her pocket, and she stated that she took several of them. She was restrained by paramedics for erratic behavior, was reportedly self-harming. She states that she also drank alcohol. She currently is not providing any history to me at this time. Hospital Course Pt was placed on 5150 hold by telemetry psych service. she was initially admitted to telemetry floor checked for her LFTs which was normal,. She remained symptom free but required sitter and 5250 hold due to her homidical ideation.she had tele psych follow up and which recommended to send pt to Inpatient Psych facility and she gets dischared to inpatient psych facility today Home Meds Active Scripts Levothyroxine Sodium* (Levothyroxine Sodium*) 50 Mcg Tablet, 50 MCG PO BEFORE BREAKFAST, #30 TAB hold for a month, recheck thyroid function. Prov:ISAIAS NGUYEN 02/03/17 Reported Medications Olanzapine (Zyprexa) 10 Mg Soln, 10 MG IM ONCE, #1 VIAL 09/04/16 Divalproex Sodium* (Depakote*) 250 Mg Tablet.dr, 250 MG PO TID, TAB 09/04/16 [place] Carbonate* ([place] Carbonate*) 300 Mg Tablet, 300 MG PO TID, TAB 09/04/16 Risperidone* (Risperidone*) 2 Mg Tablet, 2 MG PO DAILY, TAB 06/26/16 Discontinued Reported Medications Methimazole* (Methimazole*) 5 Mg Tablet, 5 MG PO BID, TAB 06/26/16 Discontinued Scripts Quetiapine Fumarate* (Seroquel*) 200 Mg Tablet, 200 MG PO HS, #15 TAB Prov:JEWELLMAICOLSORINLEANDRO PATTERSON 09/04/16 Follow-up Plan Follow up with physician at Psych facility, Follow up with her own PMD through HMO insurance upon discharge from Psych facility Primary Care Provider Care Physician No Primary Time spent on discharge: > 30 minutes TIANNA MASSEY MD Feb 03, 2017 22:25
== END 2017-02-03 12:05 | DRG 917 ==
LOC: E/R 15:28 → MS4 22:12 → MS2 02-03 03:23
PROVIDERS: ADMIT Internal Medicine; ATTEND Internal Medicine
DX: T38.1X2A Poisoning by thyroid hormones and substitutes, intentional self-harm, initial encounter (principal); G92 Toxic encephalopathy; N17.9 Acute kidney failure, unspecified; E87.2 Acidosis; R65.10 Systemic inflammatory response syndrome (SIRS) of non-infectious origin without acute organ dysfunction; R45.850 Homicidal ideations; E86.0 Dehydration; F10.10 Alcohol abuse, uncomplicated; T14.91 Suicide attempt; F20.9 Schizophrenia, unspecified; E05.90 Thyrotoxicosis, unspecified without thyrotoxic crisis or storm; S62.91XD Unspecified fracture of right hand, subsequent encounter for fracture with routine healing; X58.XXXD Exposure to other specified factors, subsequent encounter; F15.10 Other stimulant abuse, uncomplicated; F10.129 Alcohol abuse with intoxication, unspecified; D72.829 Elevated white blood cell count, unspecified
CPT/HCPCS: 80053; 80306; 80307; 81003; 82550; 83036; 83735; 84100; 84436; 84443; 84479; 84703; 85025; 93005; 96361; 96374; 96375; J2060; J2405; J3411; J3480; J7030; J7042; P9612

== ENCOUNTER 2017-03-06 11:59 | Emergency (ER) | payer MEDICAID ==
[~2017-03-06 11:59] MED LIST changes: +LEVO50TA74 PO; -METH-493 PO; -QUET200T PO
[2017-03-06 12:16] VITALS: BP 125/81; PULSE 116; RESP 18; TEMP 98.6
--- NOTE | 2017-03-06 12:21 | ERD ---
ER Documentation Chief Complaint Date/Time DATE: 03/06/17 TIME: 12:19 Chief Complaint HPI This is a 31-year-old female brought in via EMS for agitation. The patient was given benzo in the field. The patient upon arrival is calm, appropriate. The patient does have a history of methamphetamine use. She denies the use today but is unsure. She denies any alcohol. She denies any suicidal homicidal thoughts. The patient states that she has a home at which to return. She denies any falls or trauma, no chest pain headache or shortness of breath. ROS All systems reviewed and are negative except as per history of present illness. Medications Home Meds Active Scripts Levothyroxine Sodium* (Levothyroxine Sodium*) 50 Mcg Tablet, 50 MCG PO BEFORE BREAKFAST, #30 TAB hold for a month, recheck thyroid function. Prov:ISAIAS NGUYENNella 02/03/17 Reported Medications Olanzapine (Zyprexa) 10 Mg Soln, 10 MG IM ONCE, #1 VIAL 09/04/16 Divalproex Sodium* (Depakote*) 250 Mg Tablet.dr, 250 MG PO TID, TAB 09/04/16 [place] Carbonate* ([place] Carbonate*) 300 Mg Tablet, 300 MG PO TID, TAB 09/04/16 Risperidone* (Risperidone*) 2 Mg Tablet, 2 MG PO DAILY, TAB 06/26/16 Allergies Allergies: Coded Allergies: olanzapine (Verified Adverse Reaction, Severe, fainting, vomiting, dizziness, 01/31/17) PMhx/Soc History of Surgery: No Anesthesia Reaction: No Hx Neurological Disorder: No Hx Respiratory Disorders: No Hx Cardiac Disorders: No Hx Psychiatric Problems: No Hx Miscellaneous Medical Probl: No Hx Alcohol Use: Yes Hx Substance Use: Yes (METH) Hx Tobacco Use: Yes Smoking Status: Current every day smoker FmHx Family History: No diabetes Physical Exam Vitals Vital Signs Date Time Temp Pulse Resp B/P Pulse Ox O2 Delivery O2 Flow Rate FiO2 03/06/17 12:16 98.6 116 18 125/81 Room Air Physical Exam General: Disheveled, no significant distress Head: Normocephalic, atraumatic. Eyes: Pupils equally reactive, EOM intact ENT: Moist mucous membranes Neck: Supple, no lymphadenopathy Respiratory: Lungs clear bilaterally, no distress Cardiovascular: RRR, no murmurs, rubs, or gallops Abdominal: Soft, non-tender, non-distended, no peritoneal signs : Deferred MSK: No edema, no unilateral swelling, 5/5 strength Neurologic: Alert and oriented, moving all extremities, normal speech, no focal weakness, no cerebellar signs Skin: No rash Psych: Odd affect, no suicidal thoughts Procedures/MDM The patient probably had recent or subacute methamphetamine use. She was given benzodiazepines. She has slight tachycardia triage but is otherwise resting comfortably, well-appearing in no significant intoxication currently. The patient states that she has a correction. The patient is not suicidal and does not appear to be a danger to herself or others. No further intervention in the emergency room is required. We discussed follow up with the patient's primary care doctor within 24 to 48 hours as needed. We also discussed return to the emergency room for worsening symptoms or worsening condition. Outpatient referral: [None required] Discharge Medications: None required Departure Diagnosis: Primary Impression: Agitation Additional Impression: Drug abuse Condition: Stable Patient Instructions: Drug Abuse Additional Instructions: Call your primary care doctor TOMORROW for an appointment during the next 1 WEEK.Tell the board of education secretary that you were referred from this facility.See the doctor sooner or return here if your condition worsens before your appointment time. CRISTAL ALBARADO MD Mar 06, 2017 12:21
== END 2017-03-06 13:11 | disposition home or self-care (01) ==
LOC: E/R 11:59
DX: R45.1 Restlessness and agitation (principal); F15.10 Other stimulant abuse, uncomplicated; F17.210 Nicotine dependence, cigarettes, uncomplicated
CPT/HCPCS: 99283

== ENCOUNTER 2018-01-16 15:19 | Emergency (ER) | END 2018-01-17 08:00 | disposition home or self-care (01) ==

== ENCOUNTER 2018-04-22 04:08 | Emergency (ER) | END 2018-04-22 05:32 | disposition home or self-care (01) ==

== ENCOUNTER 2018-05-03 07:14 | Emergency (ER) | END 2018-05-03 08:21 | disposition home or self-care (01) ==